=== PATIENT | male | born 1950 ===

== ENCOUNTER 2017-12-22 13:54 | Inpatient (IN) | payer MEDICAID, OTHER ==
[2017-12-22] MEDS ORDERED: Aspirin 325 mg EC Tablets PO STA (14:36)
--- NOTE | 2017-12-22 14:40 | C.PDOC ---
History Of Present Illness 67 year old male with PMHx of hypertension, diabetes, and prostate cancer presents to the ED for an evaluation of left sided chest wall pain radiating to left arm. Patient describes pain as pressure, worse with strenuous activity and intermittent for the past month but worse for the past few days. Otherwise, Patient denies any recent trauma, illness, fever, chills, SOB, palpitations, diaphoresis, dyspnea, cough, abd. pain, N/V/D, back pain, UTI sx. Ambulate to Ed for evaluation, not in any apparent distress. Last stress test pt recall 1 yrs ago. Hypertension noted on triage, pt admits " did not take my medication at home". FYI Previous records review. Pt had Myocardial perfusion scan 01/23/15: EF 6-65%, inferolateral ischemia/ infarct. Time Seen by Provider: 12/22/17 14:07 Chief Complaint (Nursing): Chest Pain History Per: Patient History/Exam Limitations: no limitations Onset/Duration Of Symptoms: Days Current Symptoms Are (Timing): Still Present Quality: Pressure Associated Symptoms: denies: Nausea, Dyspnea, Diaphoresis Exacerbating Factors: Movement, Exertion Past Medical History Reviewed: Historical Data, Nursing Documentation, Vital Signs Vital Signs: Last Vital Signs Temp 98.1 F 12/22/17 13:57 Pulse 60 12/22/17 15:45 Resp 16 12/22/17 15:45 BP 143/82 12/22/17 15:45 Pulse Ox 98 12/22/17 16:32 - Medical History PMH: Anxiety, Benign Prostatic Hyperplasia, CAD, Depression ( 3 YRS AGO ), Gastritis, HTN, Hypercholesterolemia Denies: Chronic Kidney Disease Surgical History: Coronary Stent, Endoscopy - [facility] Procedures CLOSURE SKIN & SUBCUTANEOUS NEC (04/18/13) COLONOSCOPY (05/07/14) OTH TRANSURETHRAL PROSTATECTOMY (12/11/13) Family History: States: No Known Family Hx - Social History Hx Tobacco Use: Yes Hx Alcohol Use: No Hx Substance Use: No - Immunization History Hx Tetanus Toxoid Vaccination: No Hx Influenza Vaccination: No Hx Pneumococcal Vaccination: No Review Of Systems Except As Marked, All Systems Reviewed And Found Negative. Constitutional: Negative for: Fever, Chills Cardiovascular: Positive for: Chest Pain (left sided chest wall pain ). Negative for: Palpitations Respiratory: Negative for: Shortness of Breath, Other (diaphoresis ) Gastrointestinal: Negative for: Nausea, Vomiting Physical Exam - Physical Exam Appears: Well, Non-toxic, No Acute Distress Skin: Warm, Dry, No Rash, No Ecchymosis Head: Normacephalic Eye(s): bilateral: PERRL Nose: No Flaring Oral Mucosa: Moist, No Drooling Tongue: Normal Appearing Throat: No Erythema, No Drooling Neck: Trachea Midline, Supple Chest: Symmetrical, No Deformity, No Tenderness Cardiovascular: Rhythm Regular, No Murmur, No JVD, Other ((-) carotid bruits B/L ) Respiratory: No Decreased Breath Sounds, No Accessory Muscle Use, No Rales, No Rhonchi, No Stridor, No Wheezing Gastrointestinal/Abdominal: Soft, No Tenderness, No Distention, No Guarding Back: No CVA Tenderness Extremity: Normal ROM, No Pedal Edema, No Swelling Neurological/Psych: Oriented x3, Normal Speech Gait: Steady ED Course And Treatment - Laboratory Results Result Diagrams: 12/22/17 14:46 12/22/17 14:46 Lab Interpretation: Abnormal ECG: Interpreted By Me, Viewed By Me ECG Rhythm: Sinus Rhythm ECG Interpretation: Normal, No Changes From Prior (01/23/15) Interpretation Of ECG: SR@81/min, LAD, RBBB, Q wave in II, III, AVF, no acute ST -T changes. O2 Sat by Pulse Oximetry: 98 (RA) Pulse Ox Interpretation: Normal - Radiology CXR: Interpreted by Me, Read By Radiologist CXR Interpretation: Yes: No Acute Disease Progress Note: On re-eval, pt is afebrile, hemodynamically stable. Non-toxic. PulseOx 97% on RA. Neck: Supple, (-) JVD, (-) carotid bruits. Lungs: CTA B/L, BS equal B/L. CVS: (+)S1S2, reg. ABd: benign. Neurologically intact. Blood work review, high BUN. Troponin I (-). EKG, CXR- no new acute findings. Giving history of HTN, CAD s/p inferolateral infarct, admission recommend. results review and discussed with pt, agrees with plan. Hospitalist on-call called and admission arranged. Disposition - Disposition Disposition: HOSPITALIZED Disposition Time: 15:44 Condition: STABLE Forms: [facility] (Icelandic) - Clinical Impression Clinical Impression: Chest pain - PA / [employer] FOR[employer] / Resident Statement MD/DO has reviewed & agrees with the documentation as recorded. - Scribe Statement The provider has reviewed the documentation as recorded by the Scribe Marcie Ingram All medical record entries made by the Janis were at my direction and personally dictated by me. I have reviewed the chart and agree that the record accurately reflects my personal performance of the history, physical exam, medical decision making, and the department course for this patient. I have also personally directed, reviewed, and agree with the discharge instructions and disposition.
[2017-12-22 14:50] LABS: BASO % 0.4 % (0.0-2.0); EOS # 0.3 K/uL (0.0-0.7); EOS % 2.3 % (0.0-4.0); HEMOGLOBIN 13.7 g/dL (12.0-18.0); LYMPH # 2.7 K/uL (1.0-4.3); LYMPH % 21.5 % (20.0-40.0); MEAN CELL VOLUME 91.9 fL (80.0-94.0); MEAN CORPUSCULAR HEMOGLOBIN 30.8 pg (27.0-31.0); MEAN CORPUSCULAR HGB CONC 33.5 g/dL (33.0-37.0); MEAN PLATELET VOLUME 8.6 fL (7.2-11.7); MONO # 1.1 K/uL (0.0-0.8); MONO % 8.7 % (0.0-10.0); NEUT # 8.3 K/uL (1.8-7.0); NEUT % 67.1 % (50.0-75.0); NRBC % 0.1 % (0.0-2.0); RBC 4.44 Mil/uL (4.40-5.90); RED CELL DISTRIBUTION WIDTH 14.9 % (11.5-14.5); WHITE BLOOD COUNT 12.4 K/uL (4.8-10.8)
--- NOTE | 2017-12-22 14:50 | RAD ---
Date of service: 12/22/2017 PROCEDURE: CHEST RADIOGRAPH, 1 VIEW HISTORY: Chest pain COMPARISON: 10/02/2015. FINDINGS: LUNGS: The lungs are well inflated and clear. There is a stable calcified granuloma in the right upper lobe. PLEURA: No pneumothorax or pleural fluid seen. CARDIOVASCULAR: Normal. OSSEOUS STRUCTURES: No significant abnormalities. VISUALIZED UPPER ABDOMEN: Normal. OTHER FINDINGS: None. IMPRESSION: No active pulmonary disease.
[2017-12-22] MEDS ORDERED: Aspirin 325 mg EC Tablets PO ONE (14:51)
[2017-12-22 14:59] LABS: PROTHROMBIN TIME 11.4 SECONDS (9.7-12.2)
[2017-12-22 15:04] LABS: SQUAMOUS EPITHIAL < 1 /hpf (0-5); URINE BILIRUBIN NEGATIVE (NEGATIVE); URINE BLOOD 2+ (NEGATIVE); URINE CLARITY Clear (Clear); URINE COLOR Yellow (YELLOW); URINE GLUCOSE (UA) NORMAL (Normal); URINE LEUKOCYTE ESTERASE NEG Leu/uL (Negative); URINE PROTEIN NEGATIVE (NEGATIVE); URINE UROBILINOGEN NORMAL mg/dL (0.2-1.0)
[2017-12-22 15:21] LABS: BLOOD UREA NITROGEN 24 mg/dL (9-20); GFR AFRICAN-AMERICAN > 60; GFR NON-AFRICAN AMERICAN 50
[2017-12-22 15:22] LABS: ALB/GLOB RATIO 1.3 (1.0-2.1); ALBUMIN 4.4 g/dL (3.5-5.0); ALT/SGPT 22 U/L (21-72); AST/SGOT 18 U/L (17-59); B-TYPE NATRIURETIC PEPTIDE 297 pg/mL (0-900); CALCIUM 9.9 mg/dl (8.6-10.4)
[2017-12-22] MEDS ORDERED: Sodium Chloride 0.9% 1,000 ML IV ONE (16:08)
--- NOTE | 2017-12-22 18:27 | CP.PCM.HP ---
History of Present Illness - History of Present Illness History of Present Illness: Medicine note for Hospitalist Service cc: "My chest and shoulder hurts when I walk" 67yo male with a PMH of HTN HLD CVD ([place] with 2 stent placement in 2005) Prostate CA (TURP 2013) and glucose intolerance, presents to the ED with a 2 day history of "heavy pressure" chest pain upon exertion. Pt says the pain lasts for 1 minute and occurs immediately upon beginning activities such as walking up stairs or walking long distances. Rates the pain 6/10 radiating to the left shoulder region. He describes this pain as different from the [place] in 2006. Pt forgot to take his daily medications today. ROS: Pt denies fever, chills, weight loss, headaches, dizziness, sweating, SOB, cough , Palpitations, n/V, Abd pain, blood in stool, blood in urine, leg pain/ swelling, bruising, sick contacts, recent travel, weight change, loss of conscience . Present on Admission - Present on Admission Any Indicators Present on Admission: No History of DVT/PE: No History of Uncontrolled Diabetes: No Urinary Catheter: No Decubitus Ulcer Present: No Review of Systems - Constitutional Constitutional: As Per HPI - EENT Eyes: absent: Change in Vision Nose/Mouth/Throat: As Per HPI - Cardiovascular Cardiovascular: Dyspnea on Exertion. absent: Irregular Heart Rhythm, Pain Radiating to Arm/Neck/Jaw, Leg Edema, Lightheadedness, Palpitations, Radiating Pain, Rapid Heart Rate, Syncope - Respiratory Respiratory: As Per HPI - Gastrointestinal Gastrointestinal: As Per HPI - Genitourinary Genitourinary: As Per HPI - Musculoskeletal Musculoskeletal: As Per HPI - Integumentary Integumentary: Swelling Additional comments: chest - Neurological Neurological: absent: Behavioral Changes, Confusion, Numbness, Headaches, Memory Loss, Syncope, Weakness - Psychiatric Psychiatric: absent: Anxiety, Confusion - Endocrine Endocrine: absent: Fatigue, Flushing, Palpitations - Hematologic/Lymphatic Hematologic: absent: Easy Bruising Past Patient History - Past Medical History & Family History Past Medical History?: Yes Pertinent Family History: Mom and Dad DM type 2 3 brothers CAD Sister breast CA - Past Social History Smoking Status: Former Smoker - CARDIAC Hx Angina: Yes (recent episdoes w/ exertion) Hx Heart Attack: Yes (2005- 2 stents) Hx Hypercholesterolemia: Yes Hx Hypertension: Yes - PULMONARY Hx Respiratory Disorders: No - NEUROLOGICAL Hx Neurological Disorder: No - HEENT Hx HEENT Problems: Yes Hx Cataracts: Yes (BURKE. IOL) - RENAL Hx Chronic Kidney Disease: No - ENDOCRINE/METABOLIC Hx Endocrine Disorders: No - HEMATOLOGICAL/ONCOLOGICAL Hx Blood Disorders: Yes Hx Cancer: Yes (PROSTATE) - INTEGUMENTARY Hx Dermatological Problems: Yes Other/Comment: PT. FOR SURGERY 10/13/15-DX: SEBACEOUS CYSTS ON BACK; LIPOMA ON RIGHT HIP. - MUSCULOSKELETAL/RHEUMATOLOGICAL Hx Musculoskeletal Disorders: Yes Hx Back Pain: Yes (LUMBAR) Hx Falls: No - GASTROINTESTINAL Hx Gastritis: Yes - GENITOURINARY/GYNECOLOGICAL Hx Genitourinary Disorders: Yes Hx Prostate Cancer: Yes Hx Prostate Problems: Yes (TURP) - PSYCHIATRIC Hx Anxiety: Yes Hx Depression: Yes ( 3 YRS AGO) Hx Substance Use: No - SURGICAL HISTORY Hx Coronary Stent: Yes - ANESTHESIA Hx Anesthesia: Yes Hx Anesthesia Reactions: No Hx Malignant Hyperthermia: No Meds Allergies/Adverse Reactions: Allergies Allergy/AdvReac Type Severity Reaction Status Date / Time No Known Allergies Allergy Verified 12/22/17 14:02 Physical Exam - Constitutional Appears: Well, Non-toxic, No Acute Distress, Younger Than Stated Age - Head Exam Head Exam: ATRAUMATIC, NORMOCEPHALIC - Eye Exam Eye Exam: EOMI, Normal appearance - ENT Exam ENT Exam: Mucous Membranes Moist - Neck Exam Neck exam: Positive for: Normal Inspection. Negative for: Lymphadenopathy, Thyromegaly - Respiratory Exam Respiratory Exam: Clear to Auscultation Bilateral, NORMAL BREATHING PATTERN. absent: Accessory Muscle Use, Rales, Rhonchi, Wheezes - Cardiovascular Exam Cardiovascular Exam: Irregular Rhythm, +S1, +S2 - GI/Abdominal Exam GI & Abdominal Exam: Normal Bowel Sounds. absent: Distended, Guarding Results - Vital Signs Recent Vital Signs: Last Vital Signs Temp 98.1 F 12/22/17 13:57 Pulse 59 L 12/22/17 18:08 Resp 20 12/22/17 18:08 BP 179/89 H 12/22/17 18:08 Pulse Ox 99 12/22/17 18:08 - Labs Result Diagrams: 12/22/17 14:46 12/22/17 14:46 Labs: Laboratory Results - last 24 hr 12/22/17 12/22/17 12/22/17 14:46 14:46 14:46 WBC 12.4 H RBC 4.44 Hgb 13.7 Hct 40.8 MCV 91.9 MCH 30.8 MCHC 33.5 RDW 14.9 H Plt Count 262 D MPV 8.6 Neut % (Auto) 67.1 Lymph % (Auto) 21.5 Webb % (Auto) 8.7 Eos % (Auto) 2.3 Baso % (Auto) 0.4 Neut # (Auto) 8.3 H Lymph # (Auto) 2.7 Webb # (Auto) 1.1 H Eos # (Auto) 0.3 Baso # (Auto) 0.0 PT 11.4 INR 1.0 APTT 34 Sodium 145 Potassium 4.0 Chloride 106 Carbon Dioxide 26 Anion Gap 17 BUN 24 H Creatinine 1.4 Est GFR ( Amer) > 60 Est GFR (Non-Af Amer) 50 Random Glucose 104 Calcium 9.9 Total Bilirubin 0.8 AST 18 ALT 22 Alkaline Phosphatase 63 Troponin I 0.0610 NT-Pro-B Natriuret Pep 297 Total Protein 7.8 Albumin 4.4 Globulin 3.4 Albumin/Globulin Ratio 1.3 Urine Color Urine Clarity Urine pH Ur Specific [place] Urine Protein Urine Glucose (UA) Urine Ketones Urine Blood Urine Nitrate Urine Bilirubin Urine Urobilinogen Ur Leukocyte Esterase Urine WBC (Auto) Urine RBC (Auto) Ur Squamous Epith Cells 12/22/17 14:57 WBC RBC Hgb Hct MCV MCH MCHC RDW Plt Count MPV Neut % (Auto) Lymph % (Auto) Webb % (Auto) Eos % (Auto) Baso % (Auto) Neut # (Auto) Lymph # (Auto) Webb # (Auto) Eos # (Auto) Baso # (Auto) PT INR APTT Sodium Potassium Chloride Carbon Dioxide Anion Gap BUN Creatinine Est GFR ( Amer) Est GFR (Non-Af Amer) Random Glucose Calcium Total Bilirubin AST ALT Alkaline Phosphatase Troponin I NT-Pro-B Natriuret Pep Total Protein Albumin Globulin Albumin/Globulin Ratio Urine Color Yellow Urine Clarity Clear Urine pH 5.0 Ur Specific [place] 1.013 Urine Protein Negative Urine Glucose (UA) Normal Urine Ketones Negative Urine Blood 2+ H Urine Nitrate Negative Urine Bilirubin Negative Urine Urobilinogen Normal Ur Leukocyte Esterase Neg Urine WBC (Auto) 2 Urine RBC (Auto) 7 H Ur Squamous Epith Cells < 1 Assessment & Plan - Assessment and Plan (Free Text) Assessment: 7yo male with a PMH of HTN HLD CVD ([place] with 2 stent placement in 2005) Prostate CA (TURP 2013) and glucose intolerance, presents to the ED with a 2 day history of "heavy pressure" chest pain upon exertion. EKG neg x1 Trop x1 Plan: Stable angina -f/u 3 trop (negx1) -f/u 3 EKG (negx1) -cardio consulted- Dr. Walekr : pending Cath soon -restarted home medications HCTZ 25mg PO Daily Norvasc 5mg PO daily rosuvatatin 5mg PO HS Lisinopril 40mg PO Daily Asprin 325 PO STAT Carvedilol 6.25 PO BID -Echo ordered -TSH, A1c, Lipid Panel ordered -CBC, CMP, Phosphorus, Magnesium HTN -restarted on home meds listed above -low sodium diet HLD -Home meds restarted -Heart Healthy Diet PPX -Heart Healthy diet -ASA 81mg PO daily Disposition: Pt waiting for Cath with Dr Walker
[2017-12-22] MEDS ORDERED: Pneumococcal 23-Valent Vaccine IM ONE (19:37)
[2017-12-22 21:48] LABS: CK-MB 1.31 ng/mL (0.0-3.38); TROPONIN I 0.063 ng/mL (0.00-0.120)
[2017-12-23 07:16] LABS: RED CELL DISTRIBUTION WIDTH 14.7 % (11.5-14.5); WHITE BLOOD COUNT 8.3 K/uL (4.8-10.8)
[2017-12-23 07:24] LABS: BASO # 0.1 K/uL (0.0-0.2); BASO % 0.8 % (0.0-2.0); EOS # 0.3 K/uL (0.0-0.7); EOS % 3.7 % (0.0-4.0); HEMOGLOBIN 13.2 g/dL (12.0-18.0); LYMPH # 1.9 K/uL (1.0-4.3); LYMPH % 22.6 % (20.0-40.0); MEAN CELL VOLUME 91.8 fL (80.0-94.0); MEAN CORPUSCULAR HEMOGLOBIN 31.2 pg (27.0-31.0); MEAN PLATELET VOLUME 8.5 fL (7.2-11.7); MONO # 0.6 K/uL (0.0-0.8); MONO % 7.7 % (0.0-10.0); NEUT # 5.4 K/uL (1.8-7.0); NEUT % 65.2 % (50.0-75.0); NRBC % 0.1 % (0.0-2.0); RBC 4.22 Mil/uL (4.40-5.90)
[2017-12-23 07:39] LABS: CK-MB 1.08 ng/mL (0.0-3.38)
[2017-12-23 07:49] LABS: LDL CHOLESTEROL 78 mg/dL (0-129)
[2017-12-23 07:53] LABS: ALB/GLOB RATIO 1.4 (1.0-2.1); ALBUMIN 4.1 g/dL (3.5-5.0); ALT/SGPT 19 U/L (21-72); AST/SGOT 20 U/L (17-59); BLOOD UREA NITROGEN 19 mg/dL (9-20); CALCIUM 9.6 mg/dl (8.6-10.4); GFR AFRICAN-AMERICAN > 60; GFR NON-AFRICAN AMERICAN > 60; HDL CHOLESTEROL 31 mg/dL (30-70)
[2017-12-23] MEDS ORDERED: Verapamil 2 ML ONE (10:34)
[2017-12-23] MEDS ORDERED: Lidocaine 2% MPF (5 ml) Inj ONE (10:34)
[2017-12-23] MEDS ORDERED: Iodixanol 320 MG/ML 200 ML BOTTLE IV ONE (11:23)
--- NOTE | 2017-12-23 13:02 | CP.PCM.PN ---
Subjective - Date & Time of Evaluation Date of Evaluation: 12/23/17 Time of Evaluation: 11:30 - Subjective Subjective: Hospitalist Progress Note for Dr. Galindo Patient examined at bedside. Patient is s/p cardiac catheterization. States that his chest pain is . Denies pain, fever, chills, shortness of breath, abdominal pain, nausea, vomiting, changes in bowel movements, dysuria. Objective - Vital Signs/Intake and Output Vital Signs (last 24 hours): Temp Pulse Resp BP Pulse Ox 97.8 F 55 L 17 150/81 96 12/23/17 07:35 12/23/17 12:51 12/23/17 12:30 12/23/17 12:30 12/23/17 12:30 Intake and Output: 12/23/17 12/23/17 06:59 18:59 Output Total 400 Balance -400 - Medications Medications: Current Medications Amlodipine Besylate (Norvasc) 5 mg PO DAILY [facility] Last Admin: 12/23/17 10:00 Dose: Not Given Aspirin (Ecotrin) 81 mg PO DAILY [facility] Last Admin: 12/23/17 10:00 Dose: Not Given Carvedilol (Coreg) 6.25 mg PO BID [facility] Last Admin: 12/23/17 10:00 Dose: Not Given Hydrochlorothiazide (Hydrodiuril) 25 mg PO DAILY [facility] Last Admin: 12/23/17 10:00 Dose: Not Given Lisinopril (Zestril) 40 mg PO DAILY [facility] Last Admin: 12/23/17 10:00 Dose: Not Given Pneumococcal Polyvalent Vaccine (Pneumovax 23 Vaccine) 0.5 ml IM .ONCE ONE Stop: 12/23/17 14:01 Rosuvastatin Calcium (Crestor) 5 mg PO [facility] Last Admin: 12/22/17 21:17 Dose: 5 mg - Labs Labs: 12/23/17 07:08 12/23/17 07:08 PT 11.4 SECONDS (9.7-12.2) 12/22/17 14:46 INR 1.0 12/22/17 14:46 APTT 34 SECONDS (21-34) 12/22/17 14:46 Assessment and Plan - Assessment and Plan (Free Text) Assessment: 67 year old male with past medical history HTN, HLD, CVD ([place] with 2 stent placement in 2005), Prostate CA (TURP 2013) and glucose intolerance admitted for "heavy pressure" chest pain upon exertion. Plan: Stable angina - Troponins negative x3 - EKG shows LAD, RBBB, no acute ST-T changes. Unchanged from EKG in 01/2015. - Cardiology consulted. Patient to undergo cardiac cath. - HCTZ 25mg PO Daily - Norvasc 5mg PO daily - Rosuvatatin 5mg PO HS - Lisinopril 40mg PO Daily - Aspirin 81 mg PO daily - Carvedilol 6.25 PO BID - TSH 2.04, Free T4 0.99 - Lipid panel: Triglycerides 154 (H), Cholesterol 153, LDL 78, HDL 31 - Followup ECHO History of HTN - Continue home medications History of HLD - Continue home medications - Heart Healthy Diet PPX - SCDs Disposition: Pending cardiac cath Christian Waller PGY-1
[2017-12-23] MEDS ORDERED: Pneumococcal 23-Valent Vaccine IM ONE (14:00)
--- NOTE | 2017-12-23 17:12 | CP.PCM.PN ---
Subjective - Date & Time of Evaluation Date of Evaluation: 12/23/17 Time of Evaluation: 17:05 - Subjective Subjective: Medical Attending Note: Patient seen and examined. Patient seen at bedside. Patient had completed cardiac cath this AM. Patient is awaiting bed back to upstairs. Patient reports he had mild chest pain, denies dizziness, denies abdominal pain , reports constipated X3 days, denies edema. Objective - Vital Signs/Intake and Output Vital Signs (last 24 hours): Temp Pulse Resp BP Pulse Ox 98.3 F 66 19 161/88 H 97 12/23/17 16:00 12/23/17 16:30 12/23/17 16:30 12/23/17 16:28 12/23/17 16:30 Intake and Output: 12/23/17 12/23/17 06:59 18:59 Output Total 400 Balance -400 - Medications Medications: Current Medications Amlodipine Besylate (Norvasc) 5 mg PO DAILY [facility] Last Admin: 12/23/17 15:44 Dose: 5 mg Aspirin (Ecotrin) 81 mg PO DAILY [facility] Last Admin: 12/23/17 10:00 Dose: Not Given Carvedilol (Coreg) 6.25 mg PO BID [facility] Last Admin: 12/23/17 10:00 Dose: Not Given Hydrochlorothiazide (Hydrodiuril) 25 mg PO DAILY [facility] Last Admin: 12/23/17 15:43 Dose: 25 mg Lisinopril (Zestril) 40 mg PO DAILY [facility] Last Admin: 12/23/17 15:45 Dose: 40 mg Rosuvastatin Calcium (Crestor) 5 mg PO [facility] Last Admin: 12/22/17 21:17 Dose: 5 mg - Labs Labs: 12/23/17 07:08 12/23/17 07:08 PT 11.4 SECONDS (9.7-12.2) 12/22/17 14:46 INR 1.0 12/22/17 14:46 APTT 34 SECONDS (21-34) 12/22/17 14:46 - Constitutional Appears: Non-toxic, No Acute Distress - Head Exam Head Exam: NORMAL INSPECTION - Eye Exam Eye Exam: EOMI - ENT Exam ENT Exam: Mucous Membranes Moist - Respiratory Exam Respiratory Exam: Clear to Ausculation Bilateral, NORMAL BREATHING PATTERN. absent: Rales, Rhonchi, Wheezes - Cardiovascular Exam Cardiovascular Exam: REGULAR RHYTHM, +S1, +S2 - GI/Abdominal Exam GI & Abdominal Exam: Distended, Soft, Normal Bowel Sounds. absent: Firm, Guarding, Rigid, Tenderness, Rebound - Extremities Exam Extremities Exam: absent: Pedal Edema, Tenderness - Neurological Exam Neurological Exam: Alert, Awake, Oriented x3 - Psychiatric Exam Psychiatric exam: Normal Affect, Normal Mood - Skin Skin Exam: Dry, Normal Color, Warm Assessment and Plan (1) Unstable angina Assessment & Plan: Cardiology (Dr. Walker) on the case Cardiology (Dr. Garrison) on the case Echocardiogram completed Cardiac cath awaiting official report Cardiac enzymes negative X3 Aspirin 81mg PO daily Start DVT ppx post cath Coreg 6.25mg PO BID Lisinopril 40mg PO daily Increase Crestor 10mg PO qHS Status: Acute (2) Coronary artery disease Assessment & Plan: Cardiology (Dr. Walker) on the case Cardiology (Dr. Garrison) on the case Echocardiogram completed Cardiac cath awaiting official report Cardiac enzymes negative X3 Aspirin 81mg PO daily Start DVT ppx post cath Coreg 6.25mg PO BID Lisinopril 40mg PO daily Increase Crestor 10mg PO qHS Status: Acute (3) BPH (benign prostatic hyperplasia) Status: Chronic (4) History of - hypertension Assessment & Plan: Cardiology (Dr. Walker) on the case Cardiology (Dr. Garrison) on the case Echocardiogram completed Coreg 6.25mg PO BID Lisinopril 40mg PO daily Status: Chronic (5) Hypercholesteremia Assessment & Plan: Cardiology Marcela Walker) on the case Cardiology (Dr. Garrison) on the case Increase Crestor 10mg PO qHS Lipid panel: elevated TG and Low HDL Status: Chronic (6) Prophylactic measure Assessment & Plan: Lovenox 40mg subqdaily SCDS b/l Status: Acute
--- NOTE | 2017-12-23 20:11 | CARD ---
APPROVED REPORT Date of service: 12/23/2017 EXAM: Two-dimensional and M-mode echocardiogram with Doppler and color Doppler. Other Information Quality : GoodRhythm : INDICATION Chest Pain 2D DIMENSIONS IVSd1.2 (0.7-1.1cm)Aortic Root (2D)3.1 (2.0-3.7cm) LVDd4.8 (3.9-5.9cm)LVOT Diameter2.1 (1.8-2.4cm) PWd1.2 (0.7-1.1cm)LVDs3.7 (2.5-4.0cm) FS (%) 21.9 %LVEF (%)44.2 (>50%) M-Mode DIMENSIONS Left Atrium (MM)4.13 (2.5-4.0cm)Aortic Root3.32 (2.2-3.7cm) Aortic Cusp Exc.1.69 (1.5-2.0cm) Mitral Valve MV E Lavwtvhg69.4cm/sMV A Kvlpisbb19.5cm/sE/A ratio0.7 TDI E/Lateral E'0.0E/Medial E'0.0 Pulmonary Valve PV Peak Jrwhdrms95.3cm/sPV Peak Grad.3mmHg Tricuspid Valve TR Peak Ksujxdsc976mz/sTR Peak Gr.[id number] LEFT VENTRICLE The left ventricle is normal size. There is normal left ventricular wall thickness. The left ventricular function is normal. The left ventricular ejection fraction is within the normal range. No regional wall motion abnormalities noted. Transmitral Doppler flow pattern is Grade I-abnormal relaxation pattern. No left ventricle thrombus noted on this study. There is no ventricular septal defect visualized. There is no left ventricular aneurysm. There is no mass noted in the left ventricle. RIGHT VENTRICLE The right ventricle is normal size. There is normal right ventricular wall thickness. The right ventricular systolic function is normal. ATRIA The left atrium size is normal. The right atrium size is normal. The interatrial septum is intact with no evidence for an atrial septal defect. AORTIC VALVE The aortic valve is normal in structure and function. No aortic regurgitation is present. There is no aortic valvular stenosis. There is no aortic valvular vegetation. MITRAL VALVE The mitral valve is normal in structure and function. There is no evidence of mitral valve prolapse. There is no mitral valve stenosis. Mitral regurgitation is mild. TRICUSPID VALVE The tricuspid valve is normal in structure and function. There is no tricuspid valve regurgitation noted. There is no tricuspid valve prolapse or vegetation. There is no tricuspid valve stenosis. PULMONIC VALVE The pulmonary valve is normal in structure and function. There is no pulmonic valvular regurgitation. There is no pulmonic valvular stenosis. GREAT VESSELS The aortic root is normal in size. The ascending aorta is normal in size. The pulmonary artery is normal. The IVC is normal in size and collapses >50% with inspiration. PERICARDIAL EFFUSION The pericardium appears normal. There is no pleural effusion. <Conclusion> The left ventricular function is normal. The left ventricular ejection fraction is within the normal range. No regional wall motion abnormalities noted. Mitral regurgitation is mild.
--- NOTE | 2017-12-23 22:13 | CARDCATH ---
Copied To: Nathan Garrison MD Attending MD: Nathan Garrison MD PROCEDURE DATE: 12/23/2017 INDICATIONS: Mr. Abhishek Desouza is a 67-year-old male, history of hypertension, CAD and stenting presented with symptoms of unstable angina, progressively getting worse. Therefore, he was brought to the [facility] for further evaluation and treatment. PROCEDURES PERFORMED: Left heart catheterization with selective left and right coronary angiogram via right radial arterial approach, 6-Marshallese right radial arterial access, left ventriculogram, and wristband for hemostasis. TECHNIQUES OF PROCEDURE: After obtaining informed consent, patient was brought to the cardiac cath suite in post-absorptive and non-sedated state. Patient was prepped and draped in the usual sterile fashion. 2% lidocaine was used for infiltration of anesthesia. Using modified Seldinger technique, 6-Marshallese sheath was introduced into the right radial artery. Subsequently over a J-wire, JL4 and JR4 diagnostic catheters were used to engage the left and right coronary systems. Angiograms were obtained in different orthogonal views. Subsequently, over a J-wire, pigtail catheter was advanced into the LV and LV gram was obtained in the ESTEVES view. Hemodynamics were obtained and pullback gradients were noted. CORONARY ANATOMY: Left main is a large sized vessel that bifurcates into LAD and circ. Left circumflex large sized vessel, runs in the AV groove and gives off obtuse marginal branch, free of any obstructive disease. The left anterior descending artery is dual head circulation, gives off a large septal transplant registered nurse branch. Proximal left anterior descending has a diffuse 85% stenosis and a proximal stent which has 80% in-stent stenosis, gives off a medium sized diagonally branch which has a proximal 80% stenosis. RCA 100% [employer] PROF[employer]OR occluded with left to right collaterals. IMPRESSION: Severe two-vessel coronary artery disease. RECOMMENDATIONS: Patient to continue aggressive medical management, stage PCI of LAD and diagonal. Nathan Garrison MD
--- NOTE | 2017-12-24 06:07 | CON ---
Copied To: Zenon Walker MD Attending MD: Zenon Walker MD DATE: 12/23/2017 CARDIOLOGY CONSULT REQUESTED BY: Ginna Galindo DO, [facility]. HISTORY OF PRESENT ILLNESS: Requested to see this 67-year-old male with a history of coronary artery disease, previous stents, who for the last several weeks has been complaining of crescendo angina. He was admitted yesterday because of increasing angina with minimal exertion, although he appeared totally stable. Since arrival in the hospital, he has been stable because he has been at rest. It is important to mention that his daughter is getting today, and he was actually anxious to go to the wedding. Past medical history in addition includes some hypertension, and there is a questionable history of borderline diabetes. Yesterday, Dr. Murphy called me about this patient in view of the symptomatology of crescendo angina or preinfarction angina. Dr. Garrison, the fiber optic assembler, was called, and he graciously agreed to take this gentleman for cardiac catheterization this Monday morning. Dr. Garrison was pleasant and courteous enough to call after the catheterization and inform us that the patient has severe coronary artery disease. The right coronary stent is totally closed, and he has a [id number] collateral circulation. The left system has severe disease. The LAD stent has at least over 80% stenosis. He also has a significant stenosis down below as well in the diagonal branch. At this point in time, Mr. Desouza denies any complaint of chest pain. He is lying down. I saw him in the ICU bed #9 where he was recovering after the cardiac catheterization that was done via right radial approach. PHYSICAL EXAMINATION: GENERAL: Alert and oriented, resting comfortably in bed. VITAL SIGNS: Stable. Blood pressure about 135/70. Continuous cardiac monitoring shows sinus rhythm. Respiratory rate and O2 saturation are unremarkable. SKIN: Warm and dry. HEAD, EARS, EYES, NOSE, AND THROAT: Unremarkable. NECK: Supple. Carotids are normal. Jugular veins not distended. CHEST: Shows symmetrical expansion. LUNGS: Clear to auscultation. HEART: Heart sounds normal in intensity and regular with systolic murmur at the base. ABDOMEN: Unremarkable. COMPLEMENTARY DATA: At least two troponins are totally negative, normal. An EKG is showing sinus rhythm, right bundle-branch block, and an old inferior infarct. Echocardiogram, basically the left ventricular systolic function appears to be well preserved and trace slight degree of mitral regurgitation. Careful review of the left ventricular wall motion shows perhaps slight hypokinesia of the posterior vessel segment of the left ventricle, but overall ventricular function once again is well preserved. IMPRESSION AND PLAN: Severe coronary heart disease. The case was extensively discussed with Dr. Galindo and we would like to thank Dr. Garrison for proceeding expeditiously with this gentleman and for his great communication. I spent a great deal of time speaking with his two sons that were at the hospital today, and I conveyed the message to both of them of the medical situation with their father, and he should not participate in his daughter's wedding today obviously. The issue remains of the possibility to proceed with bypass surgery in view of the findings with the background of diabetes, etc. Zenon Walker MD
[2017-12-24 08:58] LABS: BASO % 0.5 % (0.0-2.0); EOS # 0.3 K/uL (0.0-0.7); EOS % 2.6 % (0.0-4.0); HEMOGLOBIN 13.7 g/dL (12.0-18.0); LYMPH % 19.7 % (20.0-40.0); MEAN CELL VOLUME 91.3 fL (80.0-94.0); MEAN CORPUSCULAR HEMOGLOBIN 31.6 pg (27.0-31.0); MEAN CORPUSCULAR HGB CONC 34.6 g/dL (33.0-37.0); MEAN PLATELET VOLUME 8.6 fL (7.2-11.7); MONO # 0.8 K/uL (0.0-0.8); MONO % 7.8 % (0.0-10.0); NEUT # 7.1 K/uL (1.8-7.0); NEUT % 69.4 % (50.0-75.0); RBC 4.32 Mil/uL (4.40-5.90); RED CELL DISTRIBUTION WIDTH 14.2 % (11.5-14.5); WHITE BLOOD COUNT 10.3 K/uL (4.8-10.8)
[2017-12-24 09:30] LABS: ALB/GLOB RATIO 1.4 (1.0-2.1); ALBUMIN 4.1 g/dL (3.5-5.0); CALCIUM 9.9 mg/dl (8.6-10.4)
[2017-12-24] MEDS ORDERED: Sodium Chloride 0.9% 1,000 ML IV SCH (11:15)
--- NOTE | 2017-12-24 17:04 | CP.PCM.PN ---
Subjective - Date & Time of Evaluation Date of Evaluation: 12/24/17 Time of Evaluation: 11:35 - Subjective Subjective: Medical Attending Note: patient seen and examined at bedside. patient seen with multiple family members at bedside. Patient denies acute complaints present. Discussed with family including daughter who is a physician in training, as well as with both cardiologists, patient/family to speak with social work which is not available on the weekend and to make a decision regarding PCI versus Bypass. Objective - Vital Signs/Intake and Output Vital Signs (last 24 hours): Temp Pulse Resp BP Pulse Ox 98.1 F 60 20 121/73 96 12/24/17 07:00 12/24/17 13:00 12/24/17 07:00 12/24/17 10:32 12/24/17 07:00 Intake and Output: 12/24/17 12/24/17 06:59 18:59 Intake Total 640 Balance 640 - Medications Medications: Current Medications Amlodipine Besylate (Norvasc) 5 mg PO DAILY [facility] Last Admin: 12/24/17 10:31 Dose: 5 mg Aspirin (Ecotrin) 81 mg PO DAILY [facility] Last Admin: 12/24/17 10:31 Dose: 81 mg Carvedilol (Coreg) 6.25 mg PO BID [facility] Last Admin: 12/24/17 10:32 Dose: 6.25 mg Enoxaparin Sodium (Lovenox) 40 mg SC DAILY [facility] Hydrochlorothiazide (Hydrodiuril) 25 mg PO DAILY [facility] Last Admin: 12/24/17 10:31 Dose: 25 mg Lisinopril (Zestril) 40 mg PO DAILY [facility] Last Admin: 12/24/17 10:32 Dose: 40 mg Rosuvastatin Calcium (Crestor) 10 mg PO [facility] Last Admin: 12/23/17 22:40 Dose: 10 mg - Labs Labs: 12/24/17 08:41 12/24/17 08:41 PT 11.4 SECONDS (9.7-12.2) 12/22/17 14:46 INR 1.0 12/22/17 14:46 APTT 34 SECONDS (21-34) 12/22/17 14:46 - Constitutional Appears: Non-toxic, No Acute Distress - Head Exam Head Exam: NORMAL INSPECTION - Eye Exam Eye Exam: EOMI - ENT Exam ENT Exam: Mucous Membranes Moist - Respiratory Exam Respiratory Exam: Clear to Ausculation Bilateral, NORMAL BREATHING PATTERN. absent: Rales, Rhonchi, Wheezes - Cardiovascular Exam Cardiovascular Exam: REGULAR RHYTHM, +S1, +S2 - GI/Abdominal Exam GI & Abdominal Exam: Soft, Normal Bowel Sounds. absent: Distended, Firm, Guarding, Rigid, Tenderness, Rebound - Extremities Exam Extremities Exam: absent: Pedal Edema, Tenderness - Neurological Exam Neurological Exam: Alert, Awake, Oriented x3 - Psychiatric Exam Psychiatric exam: Normal Affect, Normal Mood - Skin Skin Exam: Dry, Intact, Normal Color, Warm Assessment and Plan (1) Unstable angina Status: Acute (2) Coronary artery disease Status: Acute (3) BPH (benign prostatic hyperplasia) Status: Chronic (4) History of - hypertension Status: Chronic (5) Hypercholesteremia Status: Chronic (6) Prophylactic measure Status: Acute Attending/Attestation - Attestation I have personally seen and examined this patient.: Yes I have fully participated in the care of the patient.: Yes I have reviewed all pertinent clinical information, including history, physical exam and plan: Yes Notes (Text): Assessment and Plan (1) Unstable angina Severe 2-vessel coronary Artery Disease Assessment & Plan: * Cardiology (Dr. Walker) on the case * Interventional Cardiology (Dr. Garrison) on the case * Echocardiogram (12/23/17): left ventricular function is normal. left ventricular ejection fraction is within the normal range. No regional wall motion abnormalities noted. Mitral regurgitation is mild * Per cardiology: slight hypokinesia of the posterior vessel segment of the left ventricle * Cardiac cath (12/23/17): aggressive medical management, stage intervention of PCI of LAD and Diagonal * Cardiac enzymes negative X3 * Aspirin 81mg PO daily * Coreg 6.25mg PO BID * Lisinopril 40mg PO daily * Crestor 10mg PO qHS * Discussed with patient and daughter at bedside this morning, family to determine between PCI vs bypass need to weigh cost/benefits etc. Family to speak with social work tomorrow to see if patient has any access for any services. Status: Acute (2) Coronary artery disease with prior stents Assessment & Plan: * prior stent years ago for the RCA * Cardiology (Dr. Walker) on the case * Interventional Cardiology (Dr. Garrison) on the case * Echocardiogram (12/23/17): left ventricular function is normal. left ventricular ejection fraction is within the normal range. No regional wall motion abnormalities noted. Mitral regurgitation is mild * Per cardiology: slight hypokinesia of the posterior vessel segment of the left ventricle * Cardiac cath (12/23/17): aggressive medical management, stage intervention of PCI of LAD and Diagonal * Cardiac enzymes negative X3 * Aspirin 81mg PO daily * Coreg 6.25mg PO BID * Lisinopril 40mg PO daily * Crestor 10mg PO qHS * Discussed with patient and daughter at bedside this morning, family to determine between PCI vs bypass need to weigh cost/benefits etc. Family to speak with social work tomorrow to see if patient has any access for any services. Status: Chronic (3) Acute Renal insufficiency Assessment & Plan: * Patient is post-cath day 1; exposure to contrasr dye * Discussed with sausage grinder, recommend against IV fluids noted high EDP during cath * Encourage PO hydration * Monitor BUN/Cr Status: Acute (3) BPH (benign prostatic hyperplasia) History of Prostate Cancer Status: Chronic * Start Flomax 0.4mg PO daily Status: Chronic (4) History of - hypertension Assessment & Plan: * within normal limit while on antihypertensives * Coreg 6.25mg PO BID * Lisinopril 40mg PO daily Status: Chronic (5) Hypercholesteremia Assessment & Plan: * Increase Crestor 10mg PO qHS * T, Cholesterol: 153, LDL: 78, HDL: 31 Status: Chronic (6) Diabetes, controlled Assessment & Plan: * Hgba1c: 6.4 * /16/15: 6.7 * Accuchecks QAC and HS * off medications Status: Chronic (7) Prophylactic measure Assessment & Plan: * Lovenox 40mg subqdaily * SCDS b/l Status: Acute Disposition: monitor BUN/Cr to determine if it normalizes, f/u social work to see if patient is eligible for any services; family to make a decision between PCI or bypass given CAD in context of diabetes.
--- NOTE | 2017-12-24 17:12 | PN ---
Copied To: Zenon Walker MD Attending MD: Zenon Walker MD DATE: 12/24/2017 LOCATION: Room 658 B. SUBJECTIVE: He remains totally symptomatic at rest. He underwent catheterization via right radial artery approach. The right wrist is unremarkable. Hand and fingers are warm, no pain. Cardiac enzymes all negative as mentioned yesterday. PHYSICAL EXAMINATION: VITAL SIGNS: Vital signs remain stable at this point in time. NECK: Jugular veins and carotids remain normal. HEART: Sounds normal in intensity with murmur that mentioned above, unchanged. ABDOMEN: Unremarkable though. I spoke with Dr. Galindo yesterday, the late afternoon and early evening. The plan is to see where he is going to go from here. This morning, just now I had a long conversation with his sons and actually also with daughter who happens to be a physician in [place]. I brought them up to speed; however, certain question concerning what would be the next step, where, and how that I would defer to Dr. Garrison, the interventionalist. I did mention to them that perhaps social service would get involved to see if this nice gentleman qualifies for Medicaid. They told me that he has been here in this country around 20 years or so. PLAN: Awaiting the situation to see where he is going to go up from here. Social service provider will get involved in this situation to identify if he is eligible for Medicaid. In the meantime, therapeutically speaking, he is at rest. Family is aware that he has vessel disease, that his right coronary stent is totally closed. The LAD stent is over 80% occluded, so all questions that were asked were promptly addressed. Zenon Walker MD
[2017-12-24] MEDS: Enoxaparin 40 mg Syringe SC SCH (21:46)
[2017-12-25 06:54] LABS: BASO % 0.3 % (0.0-2.0); EOS # 0.3 K/uL (0.0-0.7); EOS % 2.8 % (0.0-4.0); HEMOGLOBIN 13.2 g/dL (12.0-18.0); LYMPH # 2.2 K/uL (1.0-4.3); LYMPH % 22.6 % (20.0-40.0); MEAN CORPUSCULAR HEMOGLOBIN 30.6 pg (27.0-31.0); MEAN CORPUSCULAR HGB CONC 33.7 g/dL (33.0-37.0); MEAN PLATELET VOLUME 8.3 fL (7.2-11.7); MONO # 0.7 K/uL (0.0-0.8); MONO % 7.6 % (0.0-10.0); NEUT # 6.5 K/uL (1.8-7.0); NEUT % 66.7 % (50.0-75.0); NRBC % 0.1 % (0.0-2.0); RBC 4.3 Mil/uL (4.40-5.90); RED CELL DISTRIBUTION WIDTH 14.6 % (11.5-14.5); WHITE BLOOD COUNT 9.8 K/uL (4.8-10.8)
[2017-12-25 07:39] LABS: ALB/GLOB RATIO 1.4 (1.0-2.1); CALCIUM 9.6 mg/dl (8.6-10.4)
[2017-12-25] MEDS: Enoxaparin 40 mg Syringe SC SCH (09:40)
[2017-12-25] MEDS: Nitroglycerin 0.1 mg/hr Top Patch TD SCH (12:41)
[2017-12-25] MEDS: Sodium Chloride 0.9% 1,000 ML IV SCH (14:31)
--- NOTE | 2017-12-25 16:10 | CP.PCM.PN ---
Subjective - Date & Time of Evaluation Date of Evaluation: 12/25/17 Time of Evaluation: 08:30 - Subjective Subjective: PGY-1 Sera Solis D.O. Medicine progress note for Dr. Murphy's service: Patient is seen and examined at bedside this morning. He is post cardiac cath day 2. Multiple family members are present. The patient reports that he is asymptomatic at rest; however, when he got up to go to the bathroom, he developed chest pain almost immediately. Patient's family states that they have discussed options and they and the patient have agreed on pursuing a CABG. Discussed with family that it may take some time to find a place to transfer the patient to get the procedure done. They expressed understanding. He is sleeping and eating well. He denies SOB, palpitations. He denies N/V/ diaphoresis. Objective - Vital Signs/Intake and Output Vital Signs (last 24 hours): Temp Pulse Resp BP Pulse Ox 97.3 F L 70 18 139/75 97 12/25/17 07:00 12/25/17 15:58 12/25/17 07:00 12/25/17 12:42 12/25/17 07:00 Intake and Output: 12/25/17 12/25/17 06:59 18:59 Intake Total 500 60 Balance 500 60 - Medications Medications: Current Medications Amlodipine Besylate (Norvasc) 5 mg PO DAILY [facility] Last Admin: 12/25/17 09:41 Dose: 5 mg Aspirin (Ecotrin) 81 mg PO DAILY [facility] Last Admin: 12/25/17 09:41 Dose: 81 mg Carvedilol (Coreg) 6.25 mg PO BID [facility] Last Admin: 12/25/17 09:41 Dose: 6.25 mg Enoxaparin Sodium (Lovenox) 40 mg SC DAILY [facility] Last Admin: 12/25/17 09:40 Dose: 40 mg Hydrochlorothiazide (Hydrodiuril) 25 mg PO DAILY [facility] Last Admin: 12/25/17 09:42 Dose: 25 mg Sodium Chloride (Sodium Chloride 0.9%) 1,000 mls @ 60 mls/hr IV .[id number] [facility] Last Admin: 12/25/17 14:31 Dose: 60 mls/hr Isosorbide Mononitrate (Imdur Er) 30 mg PO DAILY [facility] Last Admin: 12/25/17 12:41 Dose: 30 mg Lisinopril (Zestril) 40 mg PO DAILY [facility] Last Admin: 12/24/17 10:32 Dose: 40 mg Nitroglycerin (Nitro-Dur 0.1 Mg/Hr Patch) 1 patch TD DAILY [facility] Last Admin: 12/25/17 12:41 Dose: 1 patch Rosuvastatin Calcium (Crestor) 40 mg PO HS [facility] Tamsulosin HCl (Flomax) 0.4 mg PO DAILY [facility] Last Admin: 12/25/17 09:42 Dose: 0.4 mg - Labs Labs: 12/25/17 06:38 12/25/17 06:38 PT 11.4 SECONDS (9.7-12.2) 12/22/17 14:46 INR 1.0 12/22/17 14:46 APTT 34 SECONDS (21-34) 12/22/17 14:46 - Constitutional Appears: Well, No Acute Distress - Head Exam Head Exam: ATRAUMATIC, NORMAL INSPECTION, NORMOCEPHALIC - Eye Exam Eye Exam: EOMI, Normal appearance - ENT Exam ENT Exam: Mucous Membranes Moist, Normal Exam - Neck Exam Neck Exam: Full ROM, Normal Inspection - Respiratory Exam Respiratory Exam: Clear to Ausculation Bilateral, NORMAL BREATHING PATTERN. absent: Wheezes, Respiratory Distress - Cardiovascular Exam Cardiovascular Exam: REGULAR RHYTHM, +S1, +S2. absent: Murmur - GI/Abdominal Exam GI & Abdominal Exam: Soft, Normal Bowel Sounds. absent: Tenderness - Rectal Exam Rectal Exam: Deferred - Extremities Exam Extremities Exam: Full ROM, Normal Inspection - Back Exam Back Exam: NORMAL INSPECTION. absent: tenderness - Neurological Exam Neurological Exam: Alert, Awake, Oriented x3 - Psychiatric Exam Psychiatric exam: Normal Affect, Normal Mood - Skin Skin Exam: Dry, Intact, Normal Color, Warm Assessment and Plan - Assessment and Plan (Free Text) Assessment: Patient is a 67 yo male with a h/o SC with 2 stents, HTN, and HLD who presented with chest pain with exertion x2 days radiating to the left shoulder. Patient had cardiac cath 12/23 that found severe 2-vessel artery disease (LAD 85% occluded, diagonal branch 80% occluded). Patient and family would like to pursue CABG. Plan: Unstable angina, acute, worsening- 2/2 CAD, h/o SC s/p 2 stents in RCA - Cardiac enzymes negative x3 - Cardiac cath 12/23- severe 2-vessel CAD - Echo 12/23- left ventricular function is normal. left ventricular ejection fraction is within the normal range. No regional wall motion abnormalities noted. Mitral regurgitation is mild. Slight hypokinesia of the posterior vessel segment of the left ventricle - Cardiology consult (Dr. Walker) - Interventional cardiology consult (Dr. Garrison) - Aspirin 81mg PO daily - Coreg 6.25mg PO BID - Lisinopril 40mg PO daily- hold due to addition of nitroglycerin - Crestor 10mg PO QHS - Add Imdur 30 mg PO daily - Add nitroglycerine patch 0.1 mg/hr Acute renal insufficiency, stable - Post-cath day 2, exposure to contrast dye - process improvement analyst rec against IVF due to high EDP during cath- will start at low rate - NS @ 60 mL/hr - CMP in AM - Nephrology consult (Dr. Hernandez) BPH, chronic- h/o prostate CA s/p TURP - Start Flomax 0.4mg PO daily Essential HTN, chronic - Norvasc 5 mg PO daily - Coreg 6.25mg PO BID - Lisinopril 40mg PO daily- hold due to addition of NG - HCTZ 25 mg PO daily- hold due to addition of NG Hypercholesteremia, chronic - Increase Crestor to 40mg PO qHS - T, Cholesterol: 153, LDL: 78, HDL: 31 Diabetes type 2, controlled - Hgba1c 6.4 (07/07/14: 6.7) - Accuchecks QAC and HS - Diabetes education consult IVF: NS @ 60 mL/hr GI ppx: not indicated VTE ppx: Lovenox 40mg SQ daily, SCDs Diet: heart healthy Code status: full code Dispo: Awaiting social work f/u to see if patient is eligible for any services and where pt can be transferred for CABG.
[2017-12-25 20:35] LABS: SQUAMOUS EPITHIAL < 1 /hpf (0-5); URINE BILIRUBIN NEGATIVE (NEGATIVE); URINE BLOOD 1+ (NEGATIVE); URINE CLARITY Clear (Clear); URINE COLOR Straw (YELLOW); URINE GLUCOSE (UA) NORMAL (Normal); URINE LEUKOCYTE ESTERASE NEG Leu/uL (Negative); URINE PROTEIN NEGATIVE (NEGATIVE); URINE UROBILINOGEN NORMAL mg/dL (0.2-1.0)
--- NOTE | 2017-12-26 06:33 | CP.PCM.PN ---
Subjective - Date & Time of Evaluation Date of Evaluation: 12/26/17 Time of Evaluation: 09:20 - Subjective Subjective: PGY-1 Sera Solis D.O. Medicine progress note for Dr. Murphy's service: Patient is seen and examined at bedside this morning. He is post cardiac cath day 3. The patient reports that he is asymptomatic at rest. The addition of Imdur and nitroglycerin patch has helped the patient's chest pain on exertion. Patient and family would like to pursue CABG. Patient was previously seen at [place], so interventional cardiology is in the process of attempting to get the procedure set-up there. He is sleeping and eating well. He denies chest pain at rest. He denies SOB, palpitations. He denies N/V/diaphoresis. Objective - Vital Signs/Intake and Output Vital Signs (last 24 hours): Temp Pulse Resp BP Pulse Ox 97.5 F L 55 L 20 108/46 L 98 12/25/17 23:40 12/26/17 05:21 12/25/17 23:40 12/25/17 23:40 12/25/17 23:40 Intake and Output: 12/25/17 12/26/17 18:59 06:59 Intake Total 60 Balance 60 - Medications Medications: Current Medications Amlodipine Besylate (Norvasc) 5 mg PO DAILY [facility] Last Admin: 12/25/17 09:41 Dose: 5 mg Aspirin (Ecotrin) 81 mg PO DAILY [facility] Last Admin: 12/25/17 09:41 Dose: 81 mg Carvedilol (Coreg) 6.25 mg PO BID [facility] Last Admin: 12/25/17 22:39 Dose: 6.25 mg Enoxaparin Sodium (Lovenox) 40 mg SC DAILY [facility] Last Admin: 12/25/17 09:40 Dose: 40 mg Hydrochlorothiazide (Hydrodiuril) 25 mg PO DAILY [facility] Last Admin: 12/25/17 09:42 Dose: 25 mg Sodium Chloride (Sodium Chloride 0.9%) 1,000 mls @ 60 mls/hr IV .[id number] [facility] Last Admin: 12/25/17 14:31 Dose: 60 mls/hr Isosorbide Mononitrate (Imdur Er) 30 mg PO DAILY [facility] Last Admin: 12/25/17 12:41 Dose: 30 mg Lisinopril (Zestril) 40 mg PO DAILY [facility] Last Admin: 12/24/17 10:32 Dose: 40 mg Nitroglycerin (Nitro-Dur 0.1 Mg/Hr Patch) 1 patch TD DAILY [facility] Last Admin: 12/25/17 12:41 Dose: 1 patch Rosuvastatin Calcium (Crestor) 40 mg PO HS [facility] Last Admin: 12/25/17 22:39 Dose: 40 mg Tamsulosin HCl (Flomax) 0.4 mg PO DAILY [facility] Last Admin: 12/25/17 09:42 Dose: 0.4 mg - Labs Labs: 12/25/17 06:38 12/25/17 06:38 PT 11.4 SECONDS (9.7-12.2) 12/22/17 14:46 INR 1.0 12/22/17 14:46 APTT 34 SECONDS (21-34) 12/22/17 14:46 - Constitutional Appears: Well, No Acute Distress - Head Exam Head Exam: ATRAUMATIC, NORMAL INSPECTION, NORMOCEPHALIC - Eye Exam Eye Exam: EOMI, Normal appearance - ENT Exam ENT Exam: Mucous Membranes Moist, Normal Exam - Neck Exam Neck Exam: Full ROM, Normal Inspection. absent: Lymphadenopathy - Respiratory Exam Respiratory Exam: Clear to Ausculation Bilateral, NORMAL BREATHING PATTERN - Cardiovascular Exam Cardiovascular Exam: REGULAR RHYTHM, +S2, +S4. absent: Murmur - GI/Abdominal Exam GI & Abdominal Exam: Soft, Normal Bowel Sounds. absent: Tenderness - Rectal Exam Rectal Exam: Deferred - Extremities Exam Extremities Exam: Normal Inspection. absent: Pedal Edema - Back Exam Back Exam: absent: tenderness - Neurological Exam Neurological Exam: Alert, Awake, Oriented x3 - Psychiatric Exam Psychiatric exam: Normal Affect, Normal Mood - Skin Skin Exam: Dry, Intact, Normal Color, Warm Assessment and Plan - Assessment and Plan (Free Text) Assessment: Patient is a 67 yo male with a h/o CO with 2 stents, HTN, and HLD who presented with chest pain with exertion x2 days radiating to the left shoulder. Patient had cardiac cath 12/23 that found severe 2-vessel artery disease (LAD 85% occluded, diagonal branch 80% occluded). Patient and family would like to pursue CABG. Plan: Unstable angina, acute, worsening- 2/2 CAD, h/o CO s/p 2 stents in RCA - Cardiac enzymes negative x3 - Cardiac cath 12/23- severe 2-vessel CAD - Echo 12/23- left ventricular function is normal. left ventricular ejection fraction is within the normal range. No regional wall motion abnormalities noted. Mitral regurgitation is mild. Slight hypokinesia of the posterior vessel segment of the left ventricle - Cardiology consult (Dr. Walker) - Interventional cardiology consult (Dr. Garrison) - Aspirin 81mg PO daily - Coreg 6.25mg PO BID - Decrease Lisinopril 40mg to 5 mg PO daily- due to addition of nitroglycerin and CONNOR - Crestor 10mg PO QHS - Add Imdur 30 mg PO daily - Add nitroglycerine patch 0.1 mg/hr Acute renal insufficiency, stable- creatinine 1.5 today 12/26 (1.6 2 days prior) - Post-cath day 3, exposure to contrast dye - learning and development director rec against IVF due to high EDP during cath- will start at low rate - NS @ 60 mL/hr - CMP in AM - Nephrology consult (Dr. Hernandez)- likely ATN from contrast nephropathy - UA 12/25 negative - Urine random creatinine 35 - Urine random sodium 40 - Bladder scan 12/25 Impression: Right renal cysts, some of which appear mildly complex. This may be better evaluated with multiphasic CT or MRI if clinically indicated. Increased echogenicity of the bilateral renal parenchymal cortices suggestive for medical renal disease. 8 cc postvoid residual in the urinary bladder. Prominent prostate measuring up to 4 centimeters. BPH, chronic- h/o prostate CA s/p TURP - Start Flomax 0.4mg PO daily Essential HTN, chronic - Norvasc 5 mg PO daily - Coreg 6.25mg PO BID - Decrease Lisinopril 40mg to 5 mg PO daily- due to addition of nitroglycerin and CONNOR - Discontinue HCTZ 25 mg PO daily Hypercholesteremia, chronic - Increase Crestor to 40mg PO qHS - T, Cholesterol: 153, LDL: 78, HDL: 31 Diabetes type 2, controlled - Hgba1c 6.4 (07/07/14: 6.7) - Accuchecks QAC and HS - Diabetes education consult IVF: NS @ 60 mL/hr GI ppx: not indicated VTE ppx: Lovenox 40mg SQ daily, SCDs Diet: heart healthy Code status: full code Dispo: Awaiting interventional cardiology (Dr. Garrison) to see if patient is eligible for any services and where pt can be transferred for CABG.
[2017-12-26 08:38] LABS: BASO # 0.1 K/uL (0.0-0.2); BASO % 0.4 % (0.0-2.0); EOS # 0.3 K/uL (0.0-0.7); EOS % 2.6 % (0.0-4.0); HEMOGLOBIN 12.4 g/dL (12.0-18.0); LYMPH # 1.7 K/uL (1.0-4.3); LYMPH % 15.6 % (20.0-40.0); MEAN CELL VOLUME 91.6 fL (80.0-94.0); MEAN CORPUSCULAR HEMOGLOBIN 31.1 pg (27.0-31.0); MEAN PLATELET VOLUME 8.6 fL (7.2-11.7); MONO # 0.9 K/uL (0.0-0.8); NEUT # 8.2 K/uL (1.8-7.0); NEUT % 73.4 % (50.0-75.0); RBC 3.99 Mil/uL (4.40-5.90); RED CELL DISTRIBUTION WIDTH 14.4 % (11.5-14.5); WHITE BLOOD COUNT 11.2 K/uL (4.8-10.8)
--- NOTE | 2017-12-26 08:53 | CON ---
Copied To: Jovan Lerma MD Attending MD: Jovan Lerma MD DATE: 12/22/2017 HISTORY OF PRESENT ILLNESS: The patient is a 67-year-old male with past medical history of hypertension, hyperlipidemia, CAD, status post stent (2005), prostate CA, status post TURP, and glucose intolerance presented to ED with two-day history of exertional chest pain, admitted for unstable angina. Nephrology being consulted for acute kidney injury; the patient subsequently underwent cardiac cath 2 days ago with finding of severe two-vessel disease. The patient currently still symptomatic on exertion per note made by primary team. The patient otherwise reports feeling well at rest. Denies any shortness of breath, chest pain or palpitation; is reportedly eating well. Denies any nausea or vomiting. Reports urinating well. Denies any dysuria. PAST MEDICAL HISTORY: As above. SOCIAL HISTORY: Previous smoker, smoking about 2 to 3 cigarettes per day, last smoked three months ago. FAMILY HISTORY: Father with hypertension and diabetes. REVIEW OF SYSTEMS: CONSTITUTIONAL: No fevers or chills. HEENT: Denies any visual disturbances. No difficulty swallowing. RESPIRATORY: No significant cough. CARDIOVASCULAR: Per HPI. GI: No nausea or vomiting. : Per HPI. MUSCULOSKELETAL: Denies any arthralgias or back pain. NEUROLOGIC: Denies any dizziness. Reports some mild headache. PSYCHIATRIC: Denies any anxiety. PHYSICAL EXAMINATION: VITAL SIGNS: This afternoon, blood pressure 105/52, heart rate 62, respirations 18, temperature 98.2, O2 saturation is 98% on nasal cannula oxygen. GENERAL: No distress. Conversing coherently in full sentence. HEENT: Moist mucous membranes. Nonicteric. No cervical lymphadenopathy. NECK: No JVD elevation. RESPIRATORY: Lungs are clear to auscultation bilaterally. No rales. No rhonchi. No wheezes. CARDIOVASCULAR: Heart sounds S1 and S2 normal. No murmurs. No gallops. No rubs. GI: Abdomen soft, nontender, nondistended. : No bladder distention. EXTREMITIES: No lower leg edema. NEUROLOGIC: No tremor ____. No gross sensory deficit of feet. SKIN: Warm. No cyanosis. No ulcers of the feet. PSYCHIATRIC: Normal mood and normal affect. LABORATORY DATA: This morning, CBC: WBC 9.8, hemoglobin 13.7, hematocrit 39.1, platelets 251. Chemistry panel: Sodium 139, potassium 4.3, chloride 104, bicarb 25, BUN 36, creatinine 1.6, decreased from 1.2 two days ago. Glucose 113, calcium 9.6, phosphorus 3.8, magnesium 1.8, AST 24, ALT 26, albumin 4.0. Urine studies from this evening, UA, negative protein, 1+ blood, 2 rbc's per high power field. Urine sodium 40, urine creatinine 35. Chest x-ray from admission directly visualized, lungs clear. Renal ultrasound directly visualized. Not showing any significant hydronephrosis. Mildly echogenic kidneys. ASSESSMENT AND PLAN: 1. Acute kidney injury, mild increase in serum creatinine, status post cardiac catheterization, likely acute tubular necrosis from contrast nephropathy; renal function already stabilized with serum creatinine at plateau since last two days. No need for aggressive IV fluids. Maintain map above 65, avoid hypotension. Avoid further nephrotoxic insults (nonsteroidal antiinflammatories, phosphate enema, etc). If percutaneous coronary intervention is to be performed, recommend to wait till serum creatinine at baseline; should keep the patient volume repleted and with positive sodium balance before proceeding with next cardiac catheterization. 2. Hypertension. The patient currently with low normal blood pressure, currently on Coreg 6.25 mg b.i.d. and amlodipine 5 mg daily as well as Imdur 30 mg daily. 3. Agree with holding GREG inhibitor and diuretics. Consider changing Coreg to metoprolol for less antihypertensive effect. 4. Agree with continuing amlodipine in the setting of active coronary ischemia. Thank you for this referral. We will be following up closely. Jovan Lerma MD
[2017-12-26 09:03] LABS: CALCIUM 9.5 mg/dl (8.6-10.4)
[2017-12-26] MEDS: Enoxaparin 40 mg Syringe SC SCH (10:16)
[2017-12-26] MEDS: Nitroglycerin 0.1 mg/hr Top Patch TD SCH (10:16)
[2017-12-26] MEDS: Sodium Chloride 0.9% 1,000 ML IV SCH (10:18)
--- NOTE | 2017-12-26 12:19 | US ---
Renal ultrasound History: Acute renal injury. Comparison: None available. Technique: Real-time sonography was performed through the kidneys. Findings: Right kidney: 9.0 x 4.5 x 4.7 centimeters. Mild increased echogenicity of the renal parenchymal cortex suggestive for medical renal disease. Midpole hypoechoic cyst measuring 2.0 x 1.9 x 2.0 centimeters. Lower pole hypoechoic cyst with peripheral increased nodularity and or increased echogenicity measuring 1.6 x 1.3 x 1.4 centimeters. Lower pole hypoechoic cyst measuring 1.7 x 1.4 x 1.4 centimeters. Upper pole hypoechoic cyst measuring 6 x 5 x 8 millimeters. No calculi or hydronephrosis. Left Kidney: 9.7 x 4.9 x 4.8 centimeters. Mild increased echogenicity of the renal parenchymal cortex suggestive for medical renal disease. No calculi or hydronephrosis. Visualized urinary bladder is preserved. No gross bladder wall thickening. No gross bladder calculus. Prevoid bladder volume of 409 cc. Postvoid residual of 8 cc. Bilateral ureteral jets were visualized. Heterogeneous and prominent prostate measuring 4.0 x 2.9 x 3.8 centimeters. Impression: 1. Right renal cysts, some of which appear mildly complex. This may be better evaluated with multiphasic CT or MRI if clinically indicated. 2. Increased echogenicity of the bilateral renal parenchymal cortices suggestive for medical renal disease. 3. 8 cc postvoid residual in the urinary bladder. 4. Prominent prostate measuring up to 4 centimeters. If there is persistent concern for acute renal injury, consider correlation with CT scan.
--- NOTE | 2017-12-26 23:20 | CP.PCM.PN ---
Subjective - Date & Time of Evaluation Date of Evaluation: 12/26/17 Time of Evaluation: 23:00 - Subjective Subjective: Patient reports feeling well other than some URI type symptoms; denies shortness of breath or chest pain on ambulation to bathroom; urinating well; tolerating diet; awaiting transfer for possible CABG; Objective - Vital Signs/Intake and Output Vital Signs (last 24 hours): Temp Pulse Resp BP Pulse Ox 98.1 F 73 20 133/61 99 12/26/17 15:10 12/26/17 16:00 12/26/17 15:10 12/26/17 15:10 12/26/17 15:10 Intake and Output: 12/26/17 12/27/17 18:59 06:59 Intake Total 880 880 Balance 880 880 - Medications Medications: Current Medications Amlodipine Besylate (Norvasc) 5 mg PO DAILY [facility] Last Admin: 12/26/17 10:16 Dose: 5 mg Aspirin (Ecotrin) 81 mg PO DAILY [facility] Last Admin: 12/26/17 10:16 Dose: 81 mg Carvedilol (Coreg) 6.25 mg PO BID [facility] Last Admin: 12/26/17 17:44 Dose: 6.25 mg Enoxaparin Sodium (Lovenox) 40 mg SC DAILY [facility] Last Admin: 12/26/17 10:16 Dose: 40 mg Sodium Chloride (Sodium Chloride 0.9%) 1,000 mls @ 60 mls/hr IV .[id number] [facility] Last Admin: 12/26/17 10:18 Dose: 60 mls/hr Isosorbide Mononitrate (Imdur Er) 30 mg PO DAILY [facility] Last Admin: 12/26/17 10:16 Dose: 30 mg Lisinopril (Zestril) 5 mg PO DAILY [facility] Nitroglycerin (Nitro-Dur 0.1 Mg/Hr Patch) 1 patch TD DAILY [facility] Last Admin: 12/26/17 10:16 Dose: 1 patch Rosuvastatin Calcium (Crestor) 40 mg PO HS [facility] Last Admin: 12/26/17 21:34 Dose: 40 mg Tamsulosin HCl (Flomax) 0.4 mg PO DAILY [facility] Last Admin: 12/26/17 10:16 Dose: 0.4 mg - Labs Labs: 12/26/17 08:27 12/26/17 08:27 PT 11.4 SECONDS (9.7-12.2) 12/22/17 14:46 INR 1.0 12/22/17 14:46 APTT 34 SECONDS (21-34) 12/22/17 14:46 - Constitutional Appears: Non-toxic, No Acute Distress - Eye Exam Eye Exam: Normal appearance - Respiratory Exam Respiratory Exam: Clear to Ausculation Bilateral. absent: Respiratory Distress - Cardiovascular Exam Cardiovascular Exam: RRR, +S1, +S2 - GI/Abdominal Exam GI & Abdominal Exam: Soft. absent: Distended, Tenderness - Exam Exam: absent: Bladder Distension - Extremities Exam Additional comments: no leg edema; - Neurological Exam Neurological Exam: Alert, Awake - Psychiatric Exam Psychiatric exam: Normal Affect, Normal Mood. absent: Agitated - Skin Skin Exam: Warm. absent: Cyanosis Assessment and Plan (1) Acute kidney injury Assessment & Plan: Mild CONNOR on mild CKD, seondary to contrast nephropathy; non-oliguric, renal function starting to improve; stable volume and electolyte status; -Maintain MAP > 65; -Avoid nephrotoxic agents; -Should keep volume replete if additional IV dye procedure needed; Status: Acute (2) Coronary artery disease Assessment & Plan: Unstable angina presentation with 2 vessel disease on cath; awaiting CABG; currently asymptomatic; f/u with cardio; Status: Acute (3) HTN (hypertension) Assessment & Plan: On multiple meds with anti-htn effect in the setting of unstable angina; on indur, amlodipine and nitro patch to maintain coronary blood flow and prevent further anginal symptoms; some possible wall motion abnormality mentioned by cardiology and on coreg as well; -should continue to hold GREG inhibitor for now to avoid loss of renal autoregulation; -continue gentle IVF (NS at 60 cc/hr) to maintain adequate BP; Status: Acute
--- NOTE | 2017-12-27 01:14 | CP.PCM.CON ---
History of Present Illness - History of Present Illness History of Present Illness: Consultation for evaluation of CAD s/p LHCx HPI: Review of Systems - Review of Systems Systems not reviewed;Unavailable: Acuity of Condition - Constitutional Constitutional: As Per HPI - EENT Eyes: As Per HPI Ears: As Per HPI Nose/Mouth/Throat: As Per HPI - Cardiovascular Cardiovascular: As Per HPI - Respiratory Respiratory: As Per HPI - Gastrointestinal Gastrointestinal: As Per HPI - Genitourinary Genitourinary: As Per HPI - Reproductive: Male Reproductive:Male: As Per HPI - Musculoskeletal Musculoskeletal: As Per HPI - Integumentary Integumentary: As Per HPI - Neurological Neurological: As Per HPI - Psychiatric Psychiatric: As Per HPI - Endocrine Endocrine: As Per HPI - Hematologic/Lymphatic Hematologic: As Per HPI Past Patient History - Past Medical History & Family History Past Medical History?: Yes - Past Social History Smoking Status: Former Smoker - CARDIAC Hx Angina: Yes (recent episdoes w/ exertion) Hx Heart Attack: Yes ( stents) Hx Hypercholesterolemia: Yes Hx Hypertension: Yes - PULMONARY Hx Respiratory Disorders: No - NEUROLOGICAL Hx Neurological Disorder: No - HEENT Hx HEENT Problems: Yes Hx Cataracts: Yes (BURKE. IOL) - RENAL Hx Chronic Kidney Disease: No - ENDOCRINE/METABOLIC Hx Endocrine Disorders: No - HEMATOLOGICAL/ONCOLOGICAL Hx Blood Disorders: Yes Hx Cancer: Yes (PROSTATE) - INTEGUMENTARY Hx Dermatological Problems: Yes Other/Comment: PT. FOR SURGERY 10/13/15-DX: SEBACEOUS CYSTS ON BACK; LIPOMA ON RIGHT HIP. - MUSCULOSKELETAL/RHEUMATOLOGICAL Hx Musculoskeletal Disorders: Yes Hx Back Pain: Yes (LUMBAR) Hx Falls: No - GASTROINTESTINAL Hx Gastritis: Yes - GENITOURINARY/GYNECOLOGICAL Hx Genitourinary Disorders: Yes Hx Prostate Cancer: Yes Hx Prostate Problems: Yes (TURP) - PSYCHIATRIC Hx Anxiety: Yes Hx Depression: Yes ( 3 YRS AGO) Hx Substance Use: No - SURGICAL HISTORY Hx Coronary Stent: Yes - ANESTHESIA Hx Anesthesia: Yes Hx Anesthesia Reactions: No Hx Malignant Hyperthermia: No Meds Allergies/Adverse Reactions: Allergies Allergy/AdvReac Type Severity Reaction Status Date / Time No Known Allergies Allergy Verified 12/22/17 14:02 - Medications Medications: Current Medications Amlodipine Besylate (Norvasc) 5 mg PO DAILY [facility] Last Admin: 12/26/17 10:16 Dose: 5 mg Aspirin (Ecotrin) 81 mg PO DAILY [facility] Last Admin: 12/26/17 10:16 Dose: 81 mg Carvedilol (Coreg) 6.25 mg PO BID [facility] Last Admin: 12/26/17 17:44 Dose: 6.25 mg Enoxaparin Sodium (Lovenox) 40 mg SC DAILY [facility] Last Admin: 12/26/17 10:16 Dose: 40 mg Sodium Chloride (Sodium Chloride 0.9%) 1,000 mls @ 60 mls/hr IV .[id number] [facility] Last Admin: 12/26/17 10:18 Dose: 60 mls/hr Isosorbide Mononitrate (Imdur Er) 30 mg PO DAILY [facility] Last Admin: 12/26/17 10:16 Dose: 30 mg Lisinopril (Zestril) 5 mg PO DAILY [facility] Nitroglycerin (Nitro-Dur 0.1 Mg/Hr Patch) 1 patch TD DAILY [facility] Last Admin: 12/26/17 10:16 Dose: 1 patch Rosuvastatin Calcium (Crestor) 40 mg PO HS [facility] Last Admin: 12/26/17 21:34 Dose: 40 mg Tamsulosin HCl (Flomax) 0.4 mg PO DAILY [facility] Last Admin: 12/26/17 10:16 Dose: 0.4 mg Physical Exam - Constitutional Appears: Well - Head Exam Head Exam: ATRAUMATIC, NORMAL INSPECTION, NORMOCEPHALIC - Eye Exam Eye Exam: EOMI, Normal appearance, PERRL Pupil Exam: NORMAL ACCOMODATION, PERRL - ENT Exam ENT Exam: Mucous Membranes Moist, Normal Exam - Neck Exam Neck exam: Positive for: Normal Inspection - Respiratory Exam Respiratory Exam: Clear to Auscultation Bilateral, NORMAL BREATHING PATTERN - Cardiovascular Exam Cardiovascular Exam: REGULAR RHYTHM - GI/Abdominal Exam GI & Abdominal Exam: Normal Bowel Sounds, Soft. absent: Tenderness - Extremities Exam Extremities exam: Positive for: normal inspection - Back Exam Back exam: NORMAL INSPECTION - Neurological Exam Neurological exam: Alert, CN II-XII Intact, Normal Gait, Oriented x3, Reflexes Normal - Psychiatric Exam Psychiatric exam: Normal Affect, Normal Mood - Skin Skin Exam: Dry, Intact, Normal Color, Warm Results - Vital Signs Recent Vital Signs: Last Vital Signs Temp 98.1 F 12/26/17 15:10 Pulse 77 12/26/17 23:27 Resp 20 12/26/17 15:10 BP 133/61 12/26/17 15:10 Pulse Ox 99 12/26/17 15:10 - Labs Result Diagrams: 12/26/17 08:27 12/26/17 08:27 Labs: Laboratory Results - last 24 hr 12/25/17 12/25/17 12/26/17 15:59 22:14 06:20 WBC RBC Hgb Hct MCV MCH MCHC RDW Plt Count MPV Neut % (Auto) Lymph % (Auto) Lawrence % (Auto) Eos % (Auto) Baso % (Auto) Neut # (Auto) Lymph # (Auto) Lawrence # (Auto) Eos # (Auto) Baso # (Auto) Sodium Potassium Chloride Carbon Dioxide Anion Gap BUN Creatinine Est GFR ( Amer) Est GFR (Non-Af Amer) POC Glucose (mg/dL) 99 98 123 H Random Glucose Calcium Phosphorus Magnesium 12/26/17 12/26/17 12/26/17 08:27 08:27 11:32 WBC 11.2 H RBC 3.99 L Hgb 12.4 Hct 36.5 MCV 91.6 MCH 31.1 H MCHC 34.0 RDW 14.4 Plt Count 251 MPV 8.6 Neut % (Auto) 73.4 Lymph % (Auto) 15.6 L Lawrence % (Auto) 8.0 Eos % (Auto) 2.6 Baso % (Auto) 0.4 Neut # (Auto) 8.2 H Lymph # (Auto) 1.7 Lawrence # (Auto) 0.9 H Eos # (Auto) 0.3 Baso # (Auto) 0.1 Sodium 140 Potassium 4.3 Chloride 104 Carbon Dioxide 25 Anion Gap 16 BUN 33 H Creatinine 1.5 Est GFR ( Amer) 56 Est GFR (Non-Af Amer) 47 POC Glucose (mg/dL) 101 Random Glucose 116 H Calcium 9.5 Phosphorus 3.5 Magnesium 1.7 12/26/17 12/26/17 16:00 21:06 WBC RBC Hgb Hct MCV MCH MCHC RDW Plt Count MPV Neut % (Auto) Lymph % (Auto) Lawrence % (Auto) Eos % (Auto) Baso % (Auto) Neut # (Auto) Lymph # (Auto) Lawrence # (Auto) Eos # (Auto) Baso # (Auto) Sodium Potassium Chloride Carbon Dioxide Anion Gap BUN Creatinine Est GFR ( Amer) Est GFR (Non-Af Amer) POC Glucose (mg/dL) 111 H 109 Random Glucose Calcium Phosphorus Magnesium Assessment & Plan (1) Chest pain Status: Acute (2) Coronary artery disease Status: Acute (3) Unstable angina Status: Acute (4) HTN (hypertension) Status: Acute (5) BPH (benign prostatic hyperplasia) Status: Chronic (6) Hypercholesteremia Status: Chronic
[2017-12-27] MEDS: Sodium Chloride 0.9% 1,000 ML IV SCH ×3 (05:20→18:40)
--- NOTE | 2017-12-27 07:08 | CP.PCM.PN ---
<Luz Coelho - Last Filed: 12/27/17 12:44> Subjective - Date & Time of Evaluation Date of Evaluation: 12/27/17 Time of Evaluation: 08:00 - Subjective Subjective: Nephrology Progress Note for Kaiden Najera PGY3 Patient seen and examined at bedside. There were no acute overnight events as per nursing staff. Patient does complain of intermittent chest palpitations at rest that is a squeezing like pain the is mild. He denies shortness of breath, nausea/vomiting/diarrhea, fever/chills, numbness/tingling, dysuria/hematuria, or urinary frequency. Objective - Vital Signs/Intake and Output Vital Signs (last 24 hours): Temp Pulse Resp BP Pulse Ox 98 F 72 20 144/68 99 12/26/17 23:35 12/27/17 05:12 12/26/17 23:35 12/26/17 23:35 12/26/17 15:10 Intake and Output: 12/27/17 12/27/17 06:59 18:59 Intake Total 880 Output Total 1100 Balance -220 - Medications Medications: Current Medications Amlodipine Besylate (Norvasc) 5 mg PO DAILY [facility] Last Admin: 12/26/17 10:16 Dose: 5 mg Aspirin (Ecotrin) 81 mg PO DAILY [facility] Last Admin: 12/26/17 10:16 Dose: 81 mg Carvedilol (Coreg) 6.25 mg PO BID [facility] Last Admin: 12/26/17 17:44 Dose: 6.25 mg Enoxaparin Sodium (Lovenox) 40 mg SC DAILY [facility] Last Admin: 12/26/17 10:16 Dose: 40 mg Sodium Chloride (Sodium Chloride 0.9%) 1,000 mls @ 60 mls/hr IV .[id number] [facility] Last Admin: 12/27/17 05:20 Dose: 60 mls/hr Isosorbide Mononitrate (Imdur Er) 30 mg PO DAILY [facility] Last Admin: 12/26/17 10:16 Dose: 30 mg Lisinopril (Zestril) 5 mg PO DAILY [facility] Nitroglycerin (Nitro-Dur 0.1 Mg/Hr Patch) 1 patch TD DAILY [facility] Last Admin: 12/26/17 10:16 Dose: 1 patch Rosuvastatin Calcium (Crestor) 40 mg PO HS [facility] Last Admin: 12/26/17 21:34 Dose: 40 mg Tamsulosin HCl (Flomax) 0.4 mg PO DAILY [facility] Last Admin: 12/26/17 10:16 Dose: 0.4 mg - Labs Labs: 12/26/17 08:27 12/26/17 08:27 PT 11.4 SECONDS (9.7-12.2) 12/22/17 14:46 INR 1.0 12/22/17 14:46 APTT 34 SECONDS (21-34) 12/22/17 14:46 - Constitutional Appears: No Acute Distress - Head Exam Head Exam: ATRAUMATIC, NORMAL INSPECTION, NORMOCEPHALIC - Eye Exam Eye Exam: Normal appearance, PERRL Pupil Exam: NORMAL ACCOMODATION - ENT Exam ENT Exam: Mucous Membranes Moist - Respiratory Exam Respiratory Exam: Clear to Ausculation Bilateral, NORMAL BREATHING PATTERN. absent: Rales, Rhonchi, Wheezes - Cardiovascular Exam Cardiovascular Exam: REGULAR RHYTHM, +S1, +S2. absent: Gallop, Rubs, Murmur - GI/Abdominal Exam GI & Abdominal Exam: Soft, Normal Bowel Sounds. absent: Rigid, Tenderness, Mass , Rebound - Extremities Exam Extremities Exam: Normal Inspection. absent: Calf Tenderness, Pedal Edema - Neurological Exam Neurological Exam: Alert, Awake, CN II-XII Intact, Oriented x3 - Psychiatric Exam Psychiatric exam: Normal Affect, Normal Mood - Skin Skin Exam: Dry, Warm Assessment and Plan - Assessment and Plan (Free Text) Assessment: This is a 67yo male with past medical history of HTN, HLD, CAD s/p PCI, BPH s/ p TURP who was admitted for 1. CONNOR on CKD II (resolved) - Secondary to contrast nephropathy - Patient has good urine output - If need IV dye, should give IV fluids beforehand - avoid nephrotoxic agents 2. Unstable angina - 2 vessel disease on Cath - Awaiting CABG - Cardiology on consult 3. HTN - On Imdur, Coreg, Norvasc and Nitro patch - Continue to hold ACEI until after CABG - Can continue light hydration Case seen, discussed and reviewed with Dr. Lerma. Kaiden Coelho PGY3 <Jovan Lerma - Last Filed: 12/28/17 08:26> Objective - Vital Signs/Intake and Output Vital Signs (last 24 hours): Temp Pulse Resp BP Pulse Ox 97.9 F 60 20 132/71 100 12/27/17 23:45 12/28/17 00:00 12/27/17 23:45 12/27/17 23:45 12/27/17 23:45 Intake and Output: 12/28/17 12/28/17 06:59 18:59 Intake Total 720 480 Output Total 1200 Balance -480 480 - Medications Medications: Current Medications Amlodipine Besylate (Norvasc) 5 mg PO DAILY [facility] Last Admin: 12/27/17 10:04 Dose: 5 mg Aspirin (Ecotrin) 81 mg PO DAILY [facility] Last Admin: 12/27/17 10:04 Dose: 81 mg Carvedilol (Coreg) 6.25 mg PO BID [facility] Last Admin: 12/27/17 18:40 Dose: 6.25 mg Enoxaparin Sodium (Lovenox) 40 mg SC DAILY [facility] Last Admin: 12/27/17 10:04 Dose: 40 mg Guaifenesin/Dextromethorphan (Robitussin Dm) 5 ml PO Q4H PRN PRN Reason: Cough Last Admin: 12/27/17 10:27 Dose: 5 ml Sodium Chloride (Sodium Chloride 0.9%) 1,000 mls @ 60 mls/hr IV .[id number] [facility] Last Admin: 12/27/17 18:40 Dose: 60 mls/hr Isosorbide Mononitrate (Imdur Er) 30 mg PO DAILY [facility] Last Admin: 12/27/17 10:04 Dose: 30 mg Lisinopril (Zestril) 5 mg PO DAILY [facility] Nitroglycerin (Nitro-Dur 0.1 Mg/Hr Patch) 1 patch TD DAILY [facility] Last Admin: 12/27/17 10:05 Dose: 1 patch Rosuvastatin Calcium (Crestor) 40 mg PO HS [facility] Last Admin: 12/27/17 22:45 Dose: 40 mg Tamsulosin HCl (Flomax) 0.4 mg PO DAILY [facility] Last Admin: 12/27/17 10:04 Dose: 0.4 mg - Labs Labs: 12/28/17 06:29 12/28/17 06:29 PT 11.4 SECONDS (9.7-12.2) 12/22/17 14:46 INR 1.0 12/22/17 14:46 APTT 34 SECONDS (21-34) 12/22/17 14:46 Assessment and Plan (1) Acute kidney injury Status: Acute (2) Coronary artery disease Status: Acute (3) HTN (hypertension) Status: Acute Attending/Attestation - Attestation I have personally seen and examined this patient.: Yes I have fully participated in the care of the patient.: Yes I have reviewed all pertinent clinical information, including history, physical exam and plan: Yes Notes (Text): Patient seen and examined; I agree with the resident's note as above with the following edits/additions: 67 yo M w/ CAD admitted with unstable angina, found to have 2 vessel disease, in need of CABG; CONNOR resolved, secondary to contrast nephropathy; is on extensive anti-anginal/ anti-htn regimen currently; should continue IVF with NS at 60 cc/hr to avoid hypotension; Otherwise, has mild non-proteinuric CKD; should avoid nephrotoxic insults.
[2017-12-27 08:11] LABS: BLOOD UREA NITROGEN 27 mg/dL (9-20); CALCIUM 9.1 mg/dl (8.6-10.4); GFR AFRICAN-AMERICAN > 60; GFR NON-AFRICAN AMERICAN > 60
[2017-12-27 08:19] LABS: BASO % 0.3 % (0.0-2.0); EOS # 0.2 K/uL (0.0-0.7); EOS % 1.3 % (0.0-4.0); HEMOGLOBIN 12.8 g/dL (12.0-18.0); LYMPH # 1.2 K/uL (1.0-4.3); LYMPH % 8.7 % (20.0-40.0); MEAN CELL VOLUME 91.6 fL (80.0-94.0); MEAN CORPUSCULAR HEMOGLOBIN 31.3 pg (27.0-31.0); MEAN CORPUSCULAR HGB CONC 34.2 g/dL (33.0-37.0); MEAN PLATELET VOLUME 8.6 fL (7.2-11.7); MONO # 0.9 K/uL (0.0-0.8); MONO % 6.6 % (0.0-10.0); NEUT # 11.2 K/uL (1.8-7.0); NEUT % 83.1 % (50.0-75.0); PLATELET COUNT 254 K/uL (130-400); RBC 4.09 Mil/uL (4.40-5.90); RED CELL DISTRIBUTION WIDTH 14.5 % (11.5-14.5); WHITE BLOOD COUNT 13.5 K/uL (4.8-10.8)
[2017-12-27 09:26] LABS: EOSINOPHIL 2 % (0-4); LYMPHOCYTE 10 % (20-40); TOTAL CELLS COUNTED 100
[2017-12-27 09:27] LABS: MONOCYTE 3 % (0-10); NEUTROPHIL 85 % (50-75); PLATELET ESTIMATE NORMAL (NORMAL)
[2017-12-27] MEDS: Enoxaparin 40 mg Syringe SC SCH (10:04)
[2017-12-27] MEDS: Nitroglycerin 0.1 mg/hr Top Patch TD SCH (10:05)
[2017-12-27] MEDS: guaiFENesin DM 100 mg-10 mg/5 ml UD PO PRN (10:27)
--- NOTE | 2017-12-27 12:07 | CARD ---
APPROVED REPORT Date of service: 12/22/2017 EKG Measurement Heart [id number] <Conclusion> Normal sinus rhythm Possible Left atrial enlargement Right bundle branch block Inferior infarct, age undetermined Abnormal ECG
--- NOTE | 2017-12-27 12:34 | CP.PCM.PN ---
Objective - Vital Signs/Intake and Output Vital Signs (last 24 hours): Temp Pulse Resp BP Pulse Ox 99 F 82 18 149/77 98 12/27/17 07:44 12/27/17 10:06 12/27/17 07:44 12/27/17 10:06 12/27/17 07:44 Intake and Output: 12/27/17 12/27/17 06:59 18:59 Intake Total 880 Output Total 1100 Balance -220 - Medications Medications: Current Medications Amlodipine Besylate (Norvasc) 5 mg PO DAILY [facility] Last Admin: 12/27/17 10:04 Dose: 5 mg Aspirin (Ecotrin) 81 mg PO DAILY [facility] Last Admin: 12/27/17 10:04 Dose: 81 mg Carvedilol (Coreg) 6.25 mg PO BID [facility] Last Admin: 12/27/17 10:04 Dose: 6.25 mg Enoxaparin Sodium (Lovenox) 40 mg SC DAILY [facility] Last Admin: 12/27/17 10:04 Dose: 40 mg Guaifenesin/Dextromethorphan (Robitussin Dm) 5 ml PO Q4H PRN PRN Reason: Cough Last Admin: 12/27/17 10:27 Dose: 5 ml Sodium Chloride (Sodium Chloride 0.9%) 1,000 mls @ 60 mls/hr IV .[id number] [facility] Last Admin: 12/27/17 05:20 Dose: 60 mls/hr Isosorbide Mononitrate (Imdur Er) 30 mg PO DAILY [facility] Last Admin: 12/27/17 10:04 Dose: 30 mg Lisinopril (Zestril) 5 mg PO DAILY [facility] Nitroglycerin (Nitro-Dur 0.1 Mg/Hr Patch) 1 patch TD DAILY [facility] Last Admin: 12/27/17 10:05 Dose: 1 patch Rosuvastatin Calcium (Crestor) 40 mg PO HS [facility] Last Admin: 12/26/17 21:34 Dose: 40 mg Tamsulosin HCl (Flomax) 0.4 mg PO DAILY [facility] Last Admin: 12/27/17 10:04 Dose: 0.4 mg - Labs Labs: 12/27/17 07:47 12/27/17 07:47 PT 11.4 SECONDS (9.7-12.2) 12/22/17 14:46 INR 1.0 12/22/17 14:46 APTT 34 SECONDS (21-34) 12/22/17 14:46 Assessment and Plan (1) Chest pain Status: Acute (2) Coronary artery disease Status: Acute (3) Unstable angina Status: Acute (4) HTN (hypertension) Status: Acute (5) BPH (benign prostatic hyperplasia) Status: Chronic (6) Hypercholesteremia Status: Chronic
--- NOTE | 2017-12-27 13:03 | CP.PCM.PN ---
Subjective - Date & Time of Evaluation Date of Evaluation: 12/27/17 Time of Evaluation: 10:00 - Subjective Subjective: Leland Espinosa, PGY1 Cardiology Progress Note for Dr. Garrison Patient was examined at bedside this morning. Patient received bladder scan yesterday. Patient says that the recent addition of Imdur and nitroglycerin has helped with some of the chest pain but it is still present. Family members present at bedside; as per social worker masters, it was noted that patient may possibly be transferred to [place] for CABG procedure. Otherwise, patient still has a pressure like left sided chest pain without radiation to jaw or extremities. Patient denies shortness of breath, abdominal pain, n/v/d, and tenderness in the upper and lower extremities. Otherwise, no overnight changes. A Full 12 Point ROS was conducted and unremarkable except as stated above. Objective - Vital Signs/Intake and Output Vital Signs (last 24 hours): Temp Pulse Resp BP Pulse Ox 99 F 82 18 149/77 98 12/27/17 07:44 12/27/17 10:06 12/27/17 07:44 12/27/17 10:06 12/27/17 07:44 Intake and Output: 12/27/17 12/27/17 06:59 18:59 Intake Total 880 Output Total 1100 Balance -220 - Medications Medications: Current Medications Amlodipine Besylate (Norvasc) 5 mg PO DAILY [facility] Last Admin: 12/27/17 10:04 Dose: 5 mg Aspirin (Ecotrin) 81 mg PO DAILY [facility] Last Admin: 12/27/17 10:04 Dose: 81 mg Carvedilol (Coreg) 6.25 mg PO BID [facility] Last Admin: 12/27/17 10:04 Dose: 6.25 mg Enoxaparin Sodium (Lovenox) 40 mg SC DAILY [facility] Last Admin: 12/27/17 10:04 Dose: 40 mg Guaifenesin/Dextromethorphan (Robitussin Dm) 5 ml PO Q4H PRN PRN Reason: Cough Last Admin: 12/27/17 10:27 Dose: 5 ml Sodium Chloride (Sodium Chloride 0.9%) 1,000 mls @ 60 mls/hr IV .[id number] [facility] Last Admin: 12/27/17 05:20 Dose: 60 mls/hr Isosorbide Mononitrate (Imdur Er) 30 mg PO DAILY [facility] Last Admin: 12/27/17 10:04 Dose: 30 mg Lisinopril (Zestril) 5 mg PO DAILY [facility] Nitroglycerin (Nitro-Dur 0.1 Mg/Hr Patch) 1 patch TD DAILY [facility] Last Admin: 12/27/17 10:05 Dose: 1 patch Rosuvastatin Calcium (Crestor) 40 mg PO HS [facility] Last Admin: 12/26/17 21:34 Dose: 40 mg Tamsulosin HCl (Flomax) 0.4 mg PO DAILY [facility] Last Admin: 12/27/17 10:04 Dose: 0.4 mg - Labs Labs: 12/27/17 07:47 12/27/17 07:47 PT 11.4 SECONDS (9.7-12.2) 12/22/17 14:46 INR 1.0 12/22/17 14:46 APTT 34 SECONDS (21-34) 12/22/17 14:46 - Constitutional Appears: No Acute Distress - Head Exam Head Exam: ATRAUMATIC, NORMAL INSPECTION, NORMOCEPHALIC - Eye Exam Eye Exam: EOMI, Normal appearance, PERRL - ENT Exam ENT Exam: Mucous Membranes Moist, Normal Exam - Neck Exam Neck Exam: Full ROM, Normal Inspection - Respiratory Exam Respiratory Exam: Clear to Ausculation Bilateral. absent: Accessory Muscle Use , Chest Wall Tenderness (No pain to palpation of chest wall. ), Decreased Breath Sounds, Rales, Rhonchi, Wheezes, Respiratory Distress - Cardiovascular Exam Cardiovascular Exam: RRR, +S1, +S2 - GI/Abdominal Exam GI & Abdominal Exam: Soft, Normal Bowel Sounds. absent: Bruit, Guarding, Tenderness, Rebound - Extremities Exam Extremities Exam: Full ROM, Normal Capillary Refill. absent: Calf Tenderness, Joint Swelling, Pedal Edema, Tenderness - Neurological Exam Neurological Exam: Alert, Awake, Oriented x3 - Skin Skin Exam: Dry, Normal Color, Warm. absent: Diaphoretic Assessment and Plan - Assessment and Plan (Free Text) Assessment: Patient is a 67 y/o M with PMHx of HTN, DM, BPH, HLD, CAD who presented to the ED for left sided chest pain radiating to left arm. Pain was described as pressure-like that worsened with exertion. Cardiac cath was performed on 12/23; patient found to have severe two vessel CAD (Proximal LAD 85% stenosis, diagnoal branch 80% stenosis, 100% occlusion of RCA with left to right collaterals). Patient's insurance is [employer] and has been pending placement for CABG procedure. Social work and case specialist is involved. Currently, patient is s/p cardiac cath Day #4. As of now, plan for CABG at [place]. Plan: Severe Two Vessel Disease s/p Cardiac Cath - requires CABG - Cardiac cath (12/23): Proximal LAD 85% stenosis, diagnoal branch 80% stenosis, 100% occlusion of RCA with left to right collaterals - d/w family and patient. Agreed to CABG procedure. - Insurance issue: Tentative plan for CABG at [place] (as noted from case specialist/social work) - troponins trending negative - continues to have mild chest pain; slightly improved with Imdur and nitro patch - Current vital signs stable; no acute distress. - restarted on home meds CONNOR - BUN/Cr trending down (Cr 1.2, down from 1.5) - Improved with gentle hydration (NS rate 60 mls); ACEi held - Bladder scan (12/25): right renal cyst, prominent prostate (Hx of BPH) BPH: - c/w flomax - Enlarged prostate on bladder scan DM: - maintain euglycemia - Accuchecks HTN: - Normotensive - Maintain MAP > 65 GI ppx: not indicated DVT ppx: lovenox Dispo: Plan for CABG at [place]. Case was discussed and reviewed with Custom Feed Mill Operator Helper, Dr. Garrison. Please see any further recommendations as per Dr. Garrison.
--- NOTE | 2017-12-27 13:17 | CP.PCM.PN ---
<Sera Solis - Last Filed: 12/27/17 15:16> Subjective - Date & Time of Evaluation Date of Evaluation: 12/27/17 Time of Evaluation: 08:45 - Subjective Subjective: PGY-1 Sera Solis D.O. Medicine progress note for Dr. Murphy's service: Patient's family is present at bedside. Patient was OK with discussing his care with them. Patient is not in any acute distress at rest, but at night, he reported having an episode of chest pain overnight that resolved on its own. Currently, we are still waiting to hear if/when patient can be transferred to another facility for a CABG procedure. We considered starting heparin drip; however, cardiology said to hold off for the time being. Objective - Vital Signs/Intake and Output Vital Signs (last 24 hours): Temp Pulse Resp BP Pulse Ox 99 F 82 18 149/77 98 12/27/17 07:44 12/27/17 10:06 12/27/17 07:44 12/27/17 10:06 12/27/17 07:44 Intake and Output: 12/27/17 12/27/17 06:59 18:59 Intake Total 880 Output Total 1100 Balance -220 - Medications Medications: Current Medications Amlodipine Besylate (Norvasc) 5 mg PO DAILY [facility] Last Admin: 12/27/17 10:04 Dose: 5 mg Aspirin (Ecotrin) 81 mg PO DAILY [facility] Last Admin: 12/27/17 10:04 Dose: 81 mg Carvedilol (Coreg) 6.25 mg PO BID [facility] Last Admin: 12/27/17 10:04 Dose: 6.25 mg Enoxaparin Sodium (Lovenox) 40 mg SC DAILY [facility] Last Admin: 12/27/17 10:04 Dose: 40 mg Guaifenesin/Dextromethorphan (Robitussin Dm) 5 ml PO Q4H PRN PRN Reason: Cough Last Admin: 12/27/17 10:27 Dose: 5 ml Sodium Chloride (Sodium Chloride 0.9%) 1,000 mls @ 60 mls/hr IV .[id number] [facility] Last Admin: 12/27/17 05:20 Dose: 60 mls/hr Isosorbide Mononitrate (Imdur Er) 30 mg PO DAILY [facility] Last Admin: 12/27/17 10:04 Dose: 30 mg Lisinopril (Zestril) 5 mg PO DAILY [facility] Nitroglycerin (Nitro-Dur 0.1 Mg/Hr Patch) 1 patch TD DAILY [facility] Last Admin: 12/27/17 10:05 Dose: 1 patch Rosuvastatin Calcium (Crestor) 40 mg PO HS [facility] Last Admin: 12/26/17 21:34 Dose: 40 mg Tamsulosin HCl (Flomax) 0.4 mg PO DAILY [facility] Last Admin: 12/27/17 10:04 Dose: 0.4 mg - Labs Labs: 12/27/17 07:47 12/27/17 07:47 PT 11.4 SECONDS (9.7-12.2) 12/22/17 14:46 INR 1.0 12/22/17 14:46 APTT 34 SECONDS (21-34) 12/22/17 14:46 - Constitutional Appears: Well, No Acute Distress - Head Exam Head Exam: ATRAUMATIC, NORMAL INSPECTION, NORMOCEPHALIC - Eye Exam Eye Exam: EOMI, Normal appearance - ENT Exam ENT Exam: Mucous Membranes Moist, Normal Exam - Neck Exam Neck Exam: Normal Inspection - Respiratory Exam Respiratory Exam: Clear to Ausculation Bilateral, NORMAL BREATHING PATTERN. absent: Rhonchi, Wheezes - Cardiovascular Exam Cardiovascular Exam: REGULAR RHYTHM, +S1, +S2. absent: Murmur - GI/Abdominal Exam GI & Abdominal Exam: Soft, Normal Bowel Sounds. absent: Tenderness - Rectal Exam Rectal Exam: Deferred - Extremities Exam Extremities Exam: Normal Capillary Refill, Normal Inspection - Back Exam Back Exam: NORMAL INSPECTION. absent: tenderness - Neurological Exam Neurological Exam: Alert, Awake, CN II-XII Intact, Oriented x3 - Psychiatric Exam Psychiatric exam: Normal Affect, Normal Mood - Skin Skin Exam: Dry, Intact, Normal Color, Warm Assessment and Plan - Assessment and Plan (Free Text) Plan: Patient is a 67 yo male with a h/o SD with 2 stents, HTN, and HLD who presented with chest pain with exertion x2 days radiating to the left shoulder. Patient had cardiac cath 12/23 that found severe 2-vessel artery disease (LAD 85% occluded, diagonal branch 80% occluded). Patient and family would like to pursue CABG. Plan: Unstable angina, acute, worsening- 2/2 CAD, h/o SD s/p 2 stents in RCA - Cardiac enzymes negative x3 - Cardiac cath 12/23- severe 2-vessel CAD - Echo 12/23- left ventricular function is normal. left ventricular ejection fraction is within the normal range. No regional wall motion abnormalities noted. Mitral regurgitation is mild. Slight hypokinesia of the posterior vessel segment of the left ventricle - Cardiology consult (Dr. Walker) - Interventional cardiology consult (Dr. Garrison) - Aspirin 81mg PO daily - Coreg 6.25mg PO BID - Hold lisinopril until after CABG procedure as per Nephrology - Crestor 10mg PO QHS - Add Imdur 30 mg PO daily - Add nitroglycerine patch 0.1 mg/hr 12/27: Considered starting heparin GGT, but cardiology asked us to hold off for now. Acute renal insufficiency, improving- creatinine 1.2 today 12/27 - Post-cath day 4, exposure to contrast dye - packing machine tender rec against IVF due to high EDP during cath- will start at low rate - NS @ 60 mL/hr - CMP in AM - Nephrology consult (Dr. Hernandez)- likely ATN from contrast nephropathy - UA 12/25 negative - Urine random creatinine 35 - Urine random sodium 40 - Bladder scan 12/25 Impression: Right renal cysts, some of which appear mildly complex. This may be better evaluated with multiphasic CT or MRI if clinically indicated. Increased echogenicity of the bilateral renal parenchymal cortices suggestive for medical renal disease. 8 cc postvoid residual in the urinary bladder. Prominent prostate measuring up to 4 centimeters. BPH, chronic- h/o prostate CA s/p TURP - Start Flomax 0.4mg PO daily Essential HTN, chronic - Norvasc 5 mg PO daily - Coreg 6.25mg PO BID - Hold lisinopril until after CABG procedure as per Nephrology - Discontinue HCTZ 25 mg PO daily Hypercholesteremia, chronic - Increase Crestor to 40mg PO qHS - T, Cholesterol: 153, LDL: 78, HDL: 31 Diabetes type 2, controlled - Hgba1c 6.4 (07/07/14: 6.7) - Accuchecks QAC and HS - Diabetes education consult - Nutrition consult IVF: NS @ 60 mL/hr GI ppx: not indicated VTE ppx: Lovenox 40mg SQ daily, SCDs Diet: heart healthy Code status: full code Dispo: Awaiting interventional cardiology (Dr. Garrison) to see if patient is eligible for any services and where pt can be transferred for CABG. <Darien Ferrera H - Last Filed: 12/27/17 16:50> Objective - Vital Signs/Intake and Output Vital Signs (last 24 hours): Temp Pulse Resp BP Pulse Ox 99 F 82 18 149/77 98 12/27/17 07:44 12/27/17 10:06 12/27/17 07:44 12/27/17 10:06 12/27/17 07:44 Intake and Output: 12/27/17 12/27/17 06:59 18:59 Intake Total 880 730 Output Total 1100 600 Balance -220 130 - Medications Medications: Current Medications Amlodipine Besylate (Norvasc) 5 mg PO DAILY [facility] Last Admin: 12/27/17 10:04 Dose: 5 mg Aspirin (Ecotrin) 81 mg PO DAILY [facility] Last Admin: 12/27/17 10:04 Dose: 81 mg Carvedilol (Coreg) 6.25 mg PO BID [facility] Last Admin: 12/27/17 10:04 Dose: 6.25 mg Enoxaparin Sodium (Lovenox) 40 mg SC DAILY [facility] Last Admin: 12/27/17 10:04 Dose: 40 mg Guaifenesin/Dextromethorphan (Robitussin Dm) 5 ml PO Q4H PRN PRN Reason: Cough Last Admin: 12/27/17 10:27 Dose: 5 ml Sodium Chloride (Sodium Chloride 0.9%) 1,000 mls @ 60 mls/hr IV .[id number] [facility] Last Admin: 12/27/17 05:20 Dose: 60 mls/hr Isosorbide Mononitrate (Imdur Er) 30 mg PO DAILY [facility] Last Admin: 12/27/17 10:04 Dose: 30 mg Lisinopril (Zestril) 5 mg PO DAILY [facility] Nitroglycerin (Nitro-Dur 0.1 Mg/Hr Patch) 1 patch TD DAILY [facility] Last Admin: 12/27/17 10:05 Dose: 1 patch Rosuvastatin Calcium (Crestor) 40 mg PO HS [facility] Last Admin: 12/26/17 21:34 Dose: 40 mg Tamsulosin HCl (Flomax) 0.4 mg PO DAILY [facility] Last Admin: 12/27/17 10:04 Dose: 0.4 mg - Labs Labs: 12/27/17 07:47 12/27/17 07:47 PT 11.4 SECONDS (9.7-12.2) 12/22/17 14:46 INR 1.0 12/22/17 14:46 APTT 34 SECONDS (21-34) 12/22/17 14:46 Attending/Attestation - Attestation I have personally seen and examined this patient.: Yes I have fully participated in the care of the patient.: Yes I have reviewed all pertinent clinical information, including history, physical exam and plan: Yes Notes (Text): 12/27/17 16:47 Medical attending: Patient was seen and examined by me, agree with the above note by the resident The patient was not in any acute distress when I came and saw with the resident. Family members present - the patient was ok with us discussing with family The patient as mentioned previously has extensive blockage multivessel disease especially in the LAD as well as the diagonal branch. Currently pending on possible transfer for CABG surgery at this time The patient reported one brief episode of chest pain last night. If neccssary will do heparin ggt. Darien Ferrera
[2017-12-28 01:28] VITALS: RESP 20
--- NOTE | 2017-12-28 05:11 | CP.PCM.PN ---
Subjective - Date & Time of Evaluation Date of Evaluation: 12/28/17 Time of Evaluation: 06:47 - Subjective Subjective: Nephrology Progress Note for Kaiden Najera PGY3 Patient seen and examined at bedside. As per nursing staff, there were no acute overnight events. Patient reports he still has intermittent chest palpitations at rest, but they are better than yesterday. Patient reports he does have a small non-productive cough that makes his chest pain worse. They are not worse with ambulation. He denies shortness of breath, nausea/vomiting/diarrhea, fever/ chills, numbness/tingling, dizziness, dysuria/hematuria. Objective - Vital Signs/Intake and Output Vital Signs (last 24 hours): Temp Pulse Resp BP Pulse Ox 97.9 F 60 20 132/71 100 12/27/17 23:45 12/28/17 00:00 12/27/17 23:45 12/27/17 23:45 12/27/17 23:45 Intake and Output: 12/27/17 12/28/17 18:59 06:59 Intake Total 730 720 Output Total 600 Balance 130 720 - Medications Medications: Current Medications Amlodipine Besylate (Norvasc) 5 mg PO DAILY [facility] Last Admin: 12/27/17 10:04 Dose: 5 mg Aspirin (Ecotrin) 81 mg PO DAILY [facility] Last Admin: 12/27/17 10:04 Dose: 81 mg Carvedilol (Coreg) 6.25 mg PO BID [facility] Last Admin: 12/27/17 18:40 Dose: 6.25 mg Enoxaparin Sodium (Lovenox) 40 mg SC DAILY [facility] Last Admin: 12/27/17 10:04 Dose: 40 mg Guaifenesin/Dextromethorphan (Robitussin Dm) 5 ml PO Q4H PRN PRN Reason: Cough Last Admin: 12/27/17 10:27 Dose: 5 ml Sodium Chloride (Sodium Chloride 0.9%) 1,000 mls @ 60 mls/hr IV .[id number] [facility] Last Admin: 12/27/17 18:40 Dose: 60 mls/hr Isosorbide Mononitrate (Imdur Er) 30 mg PO DAILY [facility] Last Admin: 12/27/17 10:04 Dose: 30 mg Lisinopril (Zestril) 5 mg PO DAILY [facility] Nitroglycerin (Nitro-Dur 0.1 Mg/Hr Patch) 1 patch TD DAILY [facility] Last Admin: 12/27/17 10:05 Dose: 1 patch Rosuvastatin Calcium (Crestor) 40 mg PO HS [facility] Last Admin: 12/27/17 22:45 Dose: 40 mg Tamsulosin HCl (Flomax) 0.4 mg PO DAILY [facility] Last Admin: 12/27/17 10:04 Dose: 0.4 mg - Labs Labs: 12/27/17 07:47 12/27/17 07:47 PT 11.4 SECONDS (9.7-12.2) 12/22/17 14:46 INR 1.0 12/22/17 14:46 APTT 34 SECONDS (21-34) 12/22/17 14:46 - Constitutional Appears: No Acute Distress - Head Exam Head Exam: ATRAUMATIC, NORMAL INSPECTION, NORMOCEPHALIC - Eye Exam Eye Exam: Normal appearance, PERRL Pupil Exam: NORMAL ACCOMODATION - ENT Exam ENT Exam: Mucous Membranes Moist - Neck Exam Neck Exam: Full ROM - Respiratory Exam Respiratory Exam: Clear to Ausculation Bilateral, NORMAL BREATHING PATTERN. absent: Rales, Rhonchi, Wheezes - Cardiovascular Exam Cardiovascular Exam: Bradycardia, REGULAR RHYTHM, +S1, +S2. absent: Gallop, Rubs, Murmur - GI/Abdominal Exam GI & Abdominal Exam: Soft, Normal Bowel Sounds. absent: Rigid, Tenderness, Mass , Rebound - Extremities Exam Extremities Exam: Normal Inspection. absent: Calf Tenderness, Pedal Edema - Neurological Exam Neurological Exam: Alert, Awake, CN II-XII Intact - Psychiatric Exam Psychiatric exam: Normal Affect, Normal Mood - Skin Skin Exam: Dry, Intact, Warm Assessment and Plan - Assessment and Plan (Free Text) Assessment: This is a 67yo male with past medical history of HTN, HLD, CAD s/p PCI, BPH s/p TURP who was admitted for 1. CONNOR on CKD II (resolved) - Secondary to contrast nephropathy - Continue IV hydration. Avoid nephrotoxic agents - If need to give IV contrast- hydrate before and after 2. Unstable angina - 2 vessel disease on Cath - Awaiting transfer to [place] for CABG - Continue IV fluids to maintain cardiac output - Maintain MAP >65 3. HTN - Patient is on Coreg, Imdur, Nitropatch and Norvasc - Continue to hold ACEI until after CABG Case seen, discussed and reviewed with Dr. Lerma. Kaiden Coelho PGY3
[2017-12-28 06:37] LABS: BASO % 0.3 % (0.0-2.0); EOS # 0.3 K/uL (0.0-0.7); EOS % 2.5 % (0.0-4.0); HEMOGLOBIN 12.1 g/dL (12.0-18.0); LYMPH # 1.4 K/uL (1.0-4.3); LYMPH % 11.2 % (20.0-40.0); MEAN CELL VOLUME 91.7 fL (80.0-94.0); MEAN CORPUSCULAR HEMOGLOBIN 31.3 pg (27.0-31.0); MEAN CORPUSCULAR HGB CONC 34.1 g/dL (33.0-37.0); MEAN PLATELET VOLUME 8.2 fL (7.2-11.7); MONO # 1.1 K/uL (0.0-0.8); MONO % 9.2 % (0.0-10.0); NEUT # 9.6 K/uL (1.8-7.0); NEUT % 76.8 % (50.0-75.0); RBC 3.86 Mil/uL (4.40-5.90); RED CELL DISTRIBUTION WIDTH 14.7 % (11.5-14.5); WHITE BLOOD COUNT 12.5 K/uL (4.8-10.8)
[2017-12-28 07:11] LABS: BLOOD UREA NITROGEN 23 mg/dL (9-20); CALCIUM 9.4 mg/dl (8.6-10.4); GFR AFRICAN-AMERICAN > 60; GFR NON-AFRICAN AMERICAN 55
[2017-12-28] MEDS: Sodium Chloride 0.9% 1,000 ML IV SCH ×2 (08:55→10:36)
--- NOTE | 2017-12-28 10:09 | CP.PCM.PN ---
Subjective - Date & Time of Evaluation Date of Evaluation: 12/28/17 Time of Evaluation: 09:00 - Subjective Subjective: Leland Espinosa, PGY1 Cardiology Progress Note for Dr. Garrison Patient was examined at bedside this morning. There have been no updates in regards to transfer for CABG. Patient is currently s/p Cath (Severe two vessel disease) Day 5. Patient still has occasional episodes of chest pain: pressure- like pain, no radiation to jaw, back, or extremities. Does not endorse cp during time of interview. Denies shortness of breath, abdominal pain, n/v/d, and pain in the extremities. A Full 12 Point ROS was conducted and unremarkable except as stated above. Objective - Vital Signs/Intake and Output Vital Signs (last 24 hours): Temp Pulse Resp BP Pulse Ox 98.8 F 87 20 141/69 99 12/28/17 07:35 12/28/17 07:35 12/28/17 07:35 12/28/17 07:35 12/28/17 07:35 Intake and Output: 12/28/17 12/28/17 06:59 18:59 Intake Total 720 480 Output Total 1200 Balance -480 480 - Medications Medications: Current Medications Amlodipine Besylate (Norvasc) 5 mg PO DAILY [facility] Last Admin: 12/27/17 10:04 Dose: 5 mg Aspirin (Ecotrin) 81 mg PO DAILY [facility] Last Admin: 12/27/17 10:04 Dose: 81 mg Carvedilol (Coreg) 6.25 mg PO BID [facility] Last Admin: 12/27/17 18:40 Dose: 6.25 mg Enoxaparin Sodium (Lovenox) 40 mg SC DAILY [facility] Last Admin: 12/27/17 10:04 Dose: 40 mg Guaifenesin/Dextromethorphan (Robitussin Dm) 5 ml PO Q4H PRN PRN Reason: Cough Last Admin: 12/27/17 10:27 Dose: 5 ml Sodium Chloride (Sodium Chloride 0.9%) 1,000 mls @ 60 mls/hr IV .[id number] [facility] Last Admin: 12/27/17 18:40 Dose: 60 mls/hr Isosorbide Mononitrate (Imdur Er) 30 mg PO DAILY [facility] Last Admin: 12/27/17 10:04 Dose: 30 mg Lisinopril (Zestril) 5 mg PO DAILY [facility] Nitroglycerin (Nitro-Dur 0.1 Mg/Hr Patch) 1 patch TD DAILY [facility] Last Admin: 12/27/17 10:05 Dose: 1 patch Rosuvastatin Calcium (Crestor) 40 mg PO HS [facility] Last Admin: 12/27/17 22:45 Dose: 40 mg Tamsulosin HCl (Flomax) 0.4 mg PO DAILY [facility] Last Admin: 12/27/17 10:04 Dose: 0.4 mg - Labs Labs: 12/28/17 06:29 12/28/17 06:29 PT 11.4 SECONDS (9.7-12.2) 12/22/17 14:46 INR 1.0 12/22/17 14:46 APTT 34 SECONDS (21-34) 12/22/17 14:46 - Constitutional Appears: No Acute Distress - Head Exam Head Exam: ATRAUMATIC, NORMAL INSPECTION, NORMOCEPHALIC - Eye Exam Eye Exam: EOMI, Normal appearance, PERRL - ENT Exam ENT Exam: Mucous Membranes Moist, Normal Exam - Neck Exam Neck Exam: Full ROM - Respiratory Exam Respiratory Exam: Clear to Ausculation Bilateral. absent: Accessory Muscle Use , Chest Wall Tenderness, Decreased Breath Sounds, Rales, Rhonchi, Wheezes, Respiratory Distress, Stridor - Cardiovascular Exam Cardiovascular Exam: RRR, +S1, +S2. absent: JVD, Murmur - GI/Abdominal Exam GI & Abdominal Exam: Soft, Normal Bowel Sounds. absent: Distended, Guarding, Rigid, Tenderness, Rebound - Extremities Exam Extremities Exam: Full ROM, Normal Inspection. absent: Calf Tenderness, Joint Swelling, Pedal Edema, Tenderness - Neurological Exam Neurological Exam: Alert, Awake, Oriented x3 - Skin Skin Exam: Dry, Normal Color, Warm Assessment and Plan - Assessment and Plan (Free Text) Assessment: Patient is a 67 y/o M with PMHx of HTN, DM, BPH, HLD, CAD who presented to the ED for left sided chest pain radiating to left arm. Pain was described as pressure-like that worsened with exertion. Cardiac cath was performed on 12/23; patient found to have severe two vessel CAD (Proximal LAD 85% stenosis, diagonal branch 80% stenosis, 100% occlusion of RCA with left to right collaterals). Patient's insurance is [facility] and has been pending placement for CABG procedure. Social work and case hardener is involved. Currently, patient is s/p cardiac cath Day #5. Patient still awaiting location of facility for CABG procedure. Plan: Severe Two Vessel Disease s/p Cardiac Cath - requires CABG (pending facility) - Insurance issue: Awaiting placement for a facility to do CABG procedure. - Cardiac cath (12/23): Proximal LAD 85% stenosis, diagonal branch 80% stenosis, 100% occlusion of RCA with left to right collaterals - d/w family and patient. Agreed to CABG procedure. - troponin negative - continues to have mild chest pain; slightly improved with Imdur and nitro patch - f/u CXR - Current vital signs stable; no acute distress. - restarted on home meds CONNOR (resolved) - BUN/Cr trending down (Cr 1.3) - Improved with gentle hydration (NS rate 60 mls); ACEi held - Bladder scan (12/25): right renal cyst, prominent prostate (Hx of BPH) BPH: - c/w flomax - Enlarged prostate on bladder scan DM: - maintain euglycemia - Accuchecks HTN: - Normotensive - Maintain MAP > 65 GI ppx: not indicated DVT ppx: lovenox Dispo: Patient is still awaiting a facility for CABG procedure. Case was discussed and reviewed with Woven Label Designer, Dr. Garrison. Please see any further recommendations as per Dr. Garrison.
[2017-12-28] MEDS: Nitroglycerin 0.1 mg/hr Top Patch TD SCH (10:27)
[2017-12-28] MEDS: Enoxaparin 40 mg Syringe SC SCH (10:27)
[2017-12-28] MEDS: guaiFENesin DM 100 mg-10 mg/5 ml UD PO PRN (10:31)
--- NOTE | 2017-12-28 12:14 | CP.PCM.DIS ---
<Sera Solis - Last Filed: 12/28/17 18:07> Provider - Provider Date of Admission: 12/22/17 15:44 Attending physician: Darien Ferrera DO Primary care physician: unknown Consults: cardiology (Aaron), interventional cardiology (Bladimir), nephrology (Maria Guadalupe) Time Spent in preparation of Discharge (in minutes): 45 Diagnosis - Discharge Diagnosis (1) Unstable angina Status: Acute Priority: High Comment: transferred to [facility] for CABG (2) Acute kidney injury Status: Resolved Priority: Medium Comment: 2/2 IV contrast (3) HTN (hypertension) Status: Chronic Priority: Medium (4) T2DM (type 2 diabetes mellitus) Status: Chronic Priority: Low (5) Hypercholesteremia Status: Chronic Priority: Low (6) BPH (benign prostatic hyperplasia) Status: Chronic Priority: Low Hospital Course - Lab Results Lab Results: Most Recent Lab Values WBC 12.5 K/uL (4.8-10.8) H 12/28/17 06:29 RBC 3.86 Mil/uL (4.40-5.90) L 12/28/17 06:29 Hgb 12.1 g/dL (12.0-18.0) 08 06:29 Hct 35.4 % (35.0-51.0) 12/28/17 06:29 MCV 91.7 fL (80.0-94.0) 08 06:29 MCH 31.3 pg (27.0-31.0) H 12/28/17 06:29 MCHC 34.1 g/dL (33.0-37.0) 12/28/17 06:29 RDW 14.7 % (11.5-14.5) H 12/28/17 06:29 Plt Count 234 K/uL (130-400) 12/28/17 06:29 MPV 8.2 fL (7.2-11.7) 12/28/17 06:29 Neut % (Auto) 76.8 % (50.0-75.0) H 12/28/17 06:29 Lymph % (Auto) 11.2 % (20.0-40.0) L 12/28/17 06:29 Karn[place] % (Auto) 9.2 % (0.0-10.0) 08 06:29 Eos % (Auto) 2.5 % (0.0-4.0) 12/28/17 06:29 Baso % (Auto) 0.3 % (0.0-2.0) 12/28/17 06:29 Neut # (Auto) 9.6 K/uL (1.8-7.0) H 12/28/17 06:29 Lymph # (Auto) 1.4 K/uL (1.0-4.3) 12/28/17 06:29 Karnes # (Auto) 1.1 K/uL (0.0-0.8) H 12/28/17 06:29 Eos # (Auto) 0.3 K/uL (0.0-0.7) 12/28/17 06:29 Baso # (Auto) 0.0 K/uL (0.0-0.2) 12/28/17 06:29 Neutrophils % (Manual) 85 % (50-75) H 12/27/17 07:47 Lymphocytes % (Manual) 10 % (20-40) L 12/27/17 07:47 Monocytes % (Manual) 3 % (0-10) 12/27/17 07:47 Eosinophils % (Manual) 2 % (0-4) 12/27/17 07:47 Platelet Estimate Normal (NORMAL) 12/27/17 07:47 RBC Morphology Normal 12/27/17 07:47 PT 11.4 SECONDS (9.7-12.2) 12/22/17 14:46 INR 1.0 12/22/17 14:46 APTT 34 SECONDS (21-34) 12/22/17 14:46 Sodium 141 mmol/L (132-148) 12/28/17 06:29 Potassium 4.8 mmol/L (3.6-5.2) 12/28/17 06:29 Chloride 104 mmol/L (98-107) 12/28/17 06:29 Carbon Dioxide 27 mmol/L (22-30) 12/28/17 06:29 Anion Gap 14 (10-20) 12/28/17 06:29 BUN 23 mg/dL (9-20) H 12/28/17 06:29 Creatinine 1.3 mg/dL (0.8-1.5) 12/28/17 06:29 Est GFR ( Amer) > 60 12/28/17 06:29 Est GFR (Non-Af Amer) 55 08 06:29 POC Glucose (mg/dL) 87 mg/dL (65-110) 12/28/17 06:11 Random Glucose 103 mg/dL (75-110) 12/28/17 06:29 Hemoglobin A1c 6.4 % (4.2-6.5) 12/24/17 08:41 Calcium 9.4 mg/dl (8.6-10.4) 12/28/17 06:29 Phosphorus 2.7 mg/dL (2.5-4.5) 12/28/17 06:29 Magnesium 1.8 mg/dL (1.6-2.3) 12/28/17 06:29 Total Bilirubin 0.4 mg/dL (0.2-1.3) 12/25/17 06:38 AST 24 U/L (17-59) 12/25/17 06:38 ALT 26 U/L (21-72) 12/25/17 06:38 Alkaline Phosphatase 67 U/L (38-126) 12/25/17 06:38 Total Creatine Kinase 59 U/L (55-170) 12/23/17 07:08 CK-MB (Mass) 1.08 ng/mL (0.0-3.38) 12/23/17 07:08 Troponin I 0.0440 ng/mL (0.00-0.120) 12/23/17 07:08 NT-Pro-B Natriuret Pep 297 pg/mL (0-900) 12/22/17 14:46 Total Protein 6.9 g/dL (6.3-8.3) 12/25/17 06:38 Albumin 4.0 g/dL (3.5-5.0) 12/25/17 06:38 Globulin 2.8 gm/dL (2.2-3.9) 12/25/17 06:38 Albumin/Globulin Ratio 1.4 (1.0-2.1) 12/25/17 06:38 Triglycerides 154 mg/dL (0-149) H 12/23/17 07:08 Cholesterol 153 mg/dL (0-199) 12/23/17 07:08 LDL Cholesterol Direct 78 mg/dL (0-129) 12/23/17 07:08 HDL Cholesterol 31 mg/dL (30-70) 12/23/17 07:08 Free T4 0.99 ng/dL (0.78-2.19) 12/23/17 07:08 TSH 3rd Generation 2.04 mIU/L (0.46-4.68) 12/23/17 07:08 Urine Color Straw (YELLOW) 12/25/17 19:49 Urine Clarity Clear (Clear) 12/25/17 19:49 Urine pH 5.0 (5.0-8.0) 12/25/17 19:49 Ur Specific [place] 1.005 (1.003-1.030) 12/25/17 19:49 Urine Protein Negative mg/dL (NEGATIVE) 12/25/17 19:49 Urine Glucose (UA) Normal mg/dL (Normal) 12/25/17 19:49 Urine Ketones Negative mg/dL (NEGATIVE) 12/25/17 19:49 Urine Blood 1+ (NEGATIVE) H 12/25/17 19:49 Urine Nitrate Negative (NEGATIVE) 12/25/17 19:49 Urine Bilirubin Negative (NEGATIVE) 12/25/17 19:49 Urine Urobilinogen Normal mg/dL (0.2-1.0) 12/25/17 19:49 Ur Leukocyte Esterase Neg Sulaiman/uL (Negative) 12/25/17 19:49 Urine WBC (Auto) 1 /hpf (0-5) 12/25/17 19:49 Urine RBC (Auto) 2 /hpf (0-3) 12/25/17 19:49 Ur Squamous Epith Cells < 1 /hpf (0-5) 12/25/17 19:49 Ur Random Creatinine 35.0 mg/dL 12/25/17 19:54 U Random Total Protein See note mg/g creat (22-128) 12/25/17 19:54 Ur Random Sodium 40 mmol/L 12/25/17 19:54 Urine Creatinine 41 mg/dL (20-370) 12/25/17 19:54 Urine Microalbumin 0.3 mg/dL 12/25/17 19:54 Microalb/Creat Ratio 6 (<30) 12/25/17 19:54 - Hospital Course Hospital Course: 67yo male with a PMH of HTN, HLD, CVD (NC with 2 stent placement in 2005), Prostate CA (TURP 2013), and glucose intolerance, presents to the ED with a 2 day history of "heavy pressure" chest pain upon exertion. Pt says the pain lasts for 1 minute and occurs immediately upon beginning activities such as walking up stairs or walking long distances. Rates the pain 6/10 radiating to the left shoulder region. He describes this pain as different from the NC in 2006. Pt forgot to take his daily medications today. Upon admission, NC was ruled out with negative troponins x3. Echo revealed normal EF with hypokinesia of LV. A left-sided cardiac cath procedure was done by Dr. Garrison, and demonstrated severe 2-vessel CAD with LAD occluded 80%, diagonal branch occluded 85%, and RCA occluded 100% and elevated end diastolic pressure. Discussion with patient and family PCI versus bypass. They decided bypass would be the better option. The patient developed acute kidney injury following administration of IV contrast. This gradually resolved by the time of discharge. Patient was transferred via ambulance to [facility] for CABG. At the time of discharge, the patient was having intermittent chest pain at rest in addition to with exertion. Discharge Exam - Head Exam Head Exam: ATRAUMATIC, NORMAL INSPECTION, NORMOCEPHALIC - Eye Exam Eye Exam: EOMI, Normal appearance - ENT Exam ENT Exam: Mucous Membranes Moist, Normal Exam - Neck Exam Neck exam: Normal Inspection - Respiratory Exam Respiratory Exam: Clear to PA & Lateral, NORMAL BREATHING PATTERN, UNREMARKABLE - Cardiovascular Exam Cardiovascular Exam: REGULAR RHYTHM, +S1, +S2 - GI/Abdominal Exam GI & Abdominal Exam: Normal Bowel Sounds, Soft, Unremarkable - Rectal Exam Rectal Exam: Deferred - Extremities Exam Extremities exam: normal inspection - Back Exam Back exam: NORMAL INSPECTION - Neurological Exam Neurological exam: Alert, CN II-XII Intact, Oriented x3 - Psychiatric Exam Psychiatric exam: Normal Affect, Normal Mood - Skin Skin Exam: Dry, Intact, Normal Color, Warm Discharge Plan - Follow Up Plan Condition: GUARDED Disposition: Trans to Other Acute Care Hosp Additional Instructions: Patient is cleared for transfer to [facility] for a 3- vessel CABG procedure as per Dr. Darien Ferrera. <Darien Ferrera - Last Filed: 12/29/17 07:49> Provider - Provider Date of Admission: 12/22/17 15:44 Attending physician: Darien Ferrera, Hospital Course - Lab Results Lab Results: Most Recent Lab Values WBC 12.5 K/uL (4.8-10.8) H 12/28/17 06: RBC 3.86 Mil/uL (4.40-5.90) L 12/28/17 06: Hgb 12.1 g/dL (12.0-18.0) 12/28/17 06:29 Hct 35.4 % (35.0-51.0) 12/28/17 06: MCV 91.7 fL (80.0-94.0) 12/28/17 06: MCH 31.3 pg (27.0-31.0) H 12/28/17 06: MCHC 34.1 g/dL (33.0-37.0) 12/28/17: RDW 14.7 % (11.5-14.5) H 12/28/17 06: Plt Count 234 K/uL (130-400) 12/28/17 06: MPV 8.2 fL (7.2-11.7) 12/28/17 06: Neut % (Auto) 76.8 % (50.0-75.0) H 12/28/17 06: Lymph % (Auto) 11.2 % (20.0-40.0) L 12/28/17 06: Karnes % (Auto) 9.2 % (0.0-10.0) 12/28/17 06: Eos % (Auto) 2.5 % (0.0-4.0) 12/28/17 06: Baso % (Auto) 0.3 % (0.0-2.0) 12/28/17 06:29 Neut # (Auto) 9.6 K/uL (1.8-7.0) H 12/28/17 06: Lymph # (Auto) 1.4 K/uL (1.0-4.3) 12/28/17 06: Karnes # (Auto) 1.1 K/uL (0.0-0.8) H 12/28/17 06:29 Eos # (Auto) 0.3 K/uL (0.0-0.7) 12/28/17 06: Baso # (Auto) 0.0 K/uL (0.0-0.2) 12/28/17 06:29 Neutrophils % (Manual) 85 % (50-75) H 12/27/17 07:47 Lymphocytes % (Manual) 10 % (20-40) L 12/27/17 07:47 Monocytes % (Manual) 3 % (0-10) 12/27/17 07:47 Eosinophils % (Manual) 2 % (0-4) 08 07:47 Platelet Estimate Normal (NORMAL) 12/27/17 07:47 RBC Morphology Normal 12/27/17 07:47 PT 11.4 SECONDS (9.7-12.2) 12/22/17 14:46 INR 1.0 12/22/17 14:46 APTT 34 SECONDS (21-34) 12/22/17 14:46 Sodium 141 mmol/L (132-148) 12/28/17 06:29 Potassium 4.8 mmol/L (3.6-5.2) 12/28/17 06:29 Chloride 104 mmol/L (98-107) 12/28/17 06:29 Carbon Dioxide 27 mmol/L (22-30) 12/28/17 06:29 Anion Gap 14 (10-20) 12/28/17 06:29 BUN 23 mg/dL (9-20) H 12/28/17 06:29 Creatinine 1.3 mg/dL (0.8-1.5) 12/28/17 06:29 Est GFR ( Amer) > 60 12/28/17 06:29 Est GFR (Non-Af Amer) 55 12/28/17 06:29 POC Glucose (mg/dL) 109 mg/dL (65-110) 12/28/17 16:59 Random Glucose 103 mg/dL (75-110) 12/28/17 06:29 Hemoglobin A1c 6.4 % (4.2-6.5) 12/24/17 08:41 Calcium 9.4 mg/dl (8.6-10.4) 12/28/17 06:29 Phosphorus 2.7 mg/dL (2.5-4.5) 12/28/17 06:29 Magnesium 1.8 mg/dL (1.6-2.3) 12/28/17 06:29 Total Bilirubin 0.4 mg/dL (0.2-1.3) 12/25/17 06:38 AST 24 U/L (17-59) 12/25/17 06:38 ALT 26 U/L (21-72) 12/25/17 06:38 Alkaline Phosphatase 67 U/L (38-126) 12/25/17 06:38 Total Creatine Kinase 59 U/L (55-170) 12/23/17 07:08 CK-MB (Mass) 1.08 ng/mL (0.0-3.38) 12/23/17 07:08 Troponin I 0.0440 ng/mL (0.00-0.120) 12/23/17 07:08 NT-Pro-B Natriuret Pep 297 pg/mL (0-900) 12/22/17 14:46 Total Protein 6.9 g/dL (6.3-8.3) 12/25/17 06:38 Albumin 4.0 g/dL (3.5-5.0) 12/25/17 06:38 Globulin 2.8 gm/dL (2.2-3.9) 12/25/17 06:38 Albumin/Globulin Ratio 1.4 (1.0-2.1) 12/25/17 06:38 Triglycerides 154 mg/dL (0-149) H 12/23/17 07:08 Cholesterol 153 mg/dL (0-199) 12/23/17 07:08 LDL Cholesterol Direct 78 mg/dL (0-129) 12/23/17 07:08 HDL Cholesterol 31 mg/dL (30-70) 12/23/17 07:08 Free T4 0.99 ng/dL (0.78-2.19) 12/23/17 07:08 TSH 3rd Generation 2.04 mIU/L (0.46-4.68) 12/23/17 07:08 Urine Color Straw (YELLOW) 12/25/17 19:49 Urine Clarity Clear (Clear) 12/25/17 19:49 Urine pH 5.0 (5.0-8.0) 12/25/17 19:49 Ur Specific [place] 1.005 (1.003-1.030) 12/25/17 19:49 Urine Protein Negative mg/dL (NEGATIVE) 12/25/17 19:49 Urine Glucose (UA) Normal mg/dL (Normal) 12/25/17 19:49 Urine Ketones Negative mg/dL (NEGATIVE) 12/25/17 19:49 Urine Blood 1+ (NEGATIVE) H 12/25/17 19:49 Urine Nitrate Negative (NEGATIVE) 12/25/17 19:49 Urine Bilirubin Negative (NEGATIVE) 12/25/17 19:49 Urine Urobilinogen Normal mg/dL (0.2-1.0) 12/25/17 19:49 Ur Leukocyte Esterase Neg Sulaiman/uL (Negative) 12/25/17 19:49 Urine WBC (Auto) 1 /hpf (0-5) 12/25/17 19:49 Urine RBC (Auto) 2 /hpf (0-3) 12/25/17 19:49 Ur Squamous Epith Cells < 1 /hpf (0-5) 12/25/17 19:49 Ur Random Creatinine 35.0 mg/dL 12/25/17 19:54 U Random Total Protein See note mg/g creat (22-128) 12/25/17 19:54 Ur Random Sodium 40 mmol/L 12/25/17 19:54 Urine Creatinine 41 mg/dL (20-370) 12/25/17 19:54 Urine Microalbumin 0.3 mg/dL 12/25/17 19:54 Microalb/Creat Ratio 6 (<30) 12/25/17 19:54 Attending/Attestation - Attestation I have personally seen and examined this patient.: Yes I have fully participated in the care of the patient.: Yes I have reviewed all pertinent clinical information, including history, physical exam and plan: Yes Notes (Text): 12/29/17 07:42 Medical attending: Patient did not report chest pain overnight compared to the previous night when he did. The patient was not short of breath, denied palpitations. He was being moved to [facility] for CABG surgery. I spoke with the transfer center and gave them additional information. A CD was made and placed in the chart, also we printed out information and placed this in the chart as well Family members present and we discussed with them. There was also another family member I spoke over the phone with Darien Ferrera
--- NOTE | 2017-12-28 12:14 | RAD ---
Date of service: 12/28/2017 HISTORY: cough COMPARISON: 12/22/2017 FINDINGS: LUNGS: No active pulmonary disease. PLEURA: No significant pleural effusion identified, no pneumothorax apparent. CARDIOVASCULAR: Normal. OSSEOUS STRUCTURES: No significant abnormalities. VISUALIZED UPPER ABDOMEN: Normal. OTHER FINDINGS: None. IMPRESSION: No active disease.
[2017-12-28 15:52] VITALS: BP 128/67; TEMP 98.1; O2SAT 98
[2017-12-28] MEDS ORDERED: Calcium Carbonate 500 mg Chewable Antacid Tab PO SCH (19:45)
[2017-12-28 20:14] VITALS: PULSE 82
== END 2017-12-28 20:27 | disposition short-term general hospital (02) | DRG 286 ==
LOC: C.ER 13:54 → C.9E 15:44 → C.6T 17:05
PROVIDERS: ADMIT Hospitalist; ATTEND Hospitalist
PROC: 4A023N7 Measurement of Cardiac Sampling and Pressure, Left Heart, Percutaneous Approach (ICD-10-PCS; principal; 2017-12-23)
PROC: B211YZZ Fluoroscopy of Multiple Coronary Arteries using Other Contrast (ICD-10-PCS; 2017-12-23)
PROC: B215YZZ Fluoroscopy of Left Heart using Other Contrast (ICD-10-PCS; 2017-12-23)
DX: I25.110 Atherosclerotic heart disease of native coronary artery with unstable angina pectoris (principal); N17.0 Acute kidney failure with tubular necrosis; T82.855A Stenosis of coronary artery stent, initial encounter; I12.9 Hypertensive chronic kidney disease with stage 1 through stage 4 chronic kidney disease, or unspecified chronic kidney disease; E11.22 Type 2 diabetes mellitus with diabetic chronic kidney disease; N18.2 Chronic kidney disease, stage 2 (mild); E78.00 Pure hypercholesterolemia, unspecified; I25.2 Old myocardial infarction; Z95.5 Presence of coronary angioplasty implant and graft; N40.0 Benign prostatic hyperplasia without lower urinary tract symptoms; C61 Malignant neoplasm of prostate; N14.1 Nephropathy induced by other drugs, medicaments and biological substances; T50.8X5A Adverse effect of diagnostic agents, initial encounter; Z87.891 Personal history of nicotine dependence; Y83.1 Surgical operation with implant of artificial internal device as the cause of abnormal reaction of the patient, or of later complication, without mention of misadventure at the time of the procedure